=== PATIENT | female | born 1995 | race American Indian/Alaskan Native ===

== ENCOUNTER 2018-08-06 14:26 | Emergency (ER) | payer SELFPAY ==
[2018-08-06 15:52] VITALS: BP 114/68
[2018-08-06] MEDS ORDERED: Penicillin G Benzathine/Procaine 600-600 1.2 Millunits/2 ML Syringe IM ONE (15:53)
--- NOTE | 2018-08-06 15:59 | EDM.PDOC ---
Scribed by Marva Luis 08/06/18 [id number] for Kumar Bagley PA ED HPI GENERAL MEDICAL PROBLEM - General Chief Complaint: ENT Problem Stated Complaint: SORE THROAT Time Seen by Provider: 08/06/18 15:49 Source of Information: Reports: Patient, RN, RN Notes Reviewed History Limitations: Reports: No Limitations - History of Present Illness INITIAL COMMENTS - FREE TEXT/NARRATIVE: Patient has 2 days of sore throat and fever. She took 800mg of Ibuprofen today. Onset: Gradual Duration: Constant Location: Reports: Other (throat) Quality: Reports: Ache Severity: Mild Improves with: Reports: None Worsens with: Reports: None Associated Symptoms: Reports: No Other Symptoms Throat Pain Score (Numeric/FACES): 8 - Related Data Allergies Allergy/AdvReac Type Severity Reaction Status Date / Time No Known Allergies Allergy Verified 08/06/18 14:37 Home Meds: Home Meds . [No Known Home Meds] 08/06/18 [History] Past Medical History - Past Health History Medical/Surgical History: Denies Medical/Surgical History HEENT History: Reports: Other (See Below) Other HEENT History: wears corrective lenses Cardiovascular History: Reports: None Respiratory History: Reports: None Gastrointestinal History: Reports: None Genitourinary History: Reports: None SPINNER OPEN END History: Reports: None Musculoskeletal History: Reports: None Neurological History: Reports: None Psychiatric History: Reports: None Endocrine/Metabolic History: Reports: None Hematologic History: Reports: None Dermatologic History: Reports: None - Infectious Disease History Infectious Disease History: Reports: None - Past Surgical History Female Surgical History: Reports: None Endocrine Surgical History: Reports: None Neurological Surgical History: Reports: None Musculoskeletal Surgical History: Reports: None Social & Family History - Family History Cardiac: Reports: Other (See Below) Other Cardiac Family History: staes heart problems with paternal grandfather and father Endocrine/Metabolic: Reports: Diabetes, Type I, Other (See Below) Other Endocrine/Metabolic Family History: states' diabletes on maternal aunt and maternal grandmother" ED ROS ENT - Review of Systems Review Of Systems: ROS reveals no pertinent complaints other than HPI. ED EXAM, ENT - Physical Exam Exam: See Below Exam Limited By: No Limitations General Appearance: Alert, WD/WN, No Apparent Distress Eye Exam: Bilateral Eye: Normal Inspection Ears: Normal External Exam, Normal Canal, Hearing Grossly Normal, Normal TMs Nose: Normal Inspection, Normal Mucousa, No Blood Mouth/Throat: Tonsillar Erythema (pustules) Head: Atraumatic, Normocephalic Neck: Other (lymphadenopathy anterior cervical bilateral) Respiratory/Chest: No Respiratory Distress, Lungs Clear, Normal Breath Sounds, No Accessory Muscle Use, Chest Non-Tender Cardiovascular: Normal Peripheral Pulses, Regular Rate, Rhythm, No Edema, No Gallop, No JVD, No Murmur, No Rub GI/Abdominal: Normal Bowel Sounds, Soft, Non-Tender, No Organomegaly, No Distention, No Abnormal Bruit, No Mass (Female) Exam: Deferred Rectal (Female) Exam: Deferred Back: Normal Inspection, Full Range of Motion Extremities: Normal Inspection, Normal Range of Motion, Non-Tender, No Pedal Edema, Normal Capillary Refill Neurological: Alert, Oriented, CN II-XII Intact, Normal Cognition, Normal Gait, Normal Reflexes, No Motor/Sensory Deficits Psychiatric: Normal Affect, Normal Mood Skin: Warm, Dry, Intact, Normal Color, No Rash Course - Vital Signs Last Recorded V/S: Last Vital Signs Temp 37.3 C 08/06/18 14:35 Pulse 74 08/06/18 14:35 Resp 16 08/06/18 14:35 BP 114/68 08/06/18 14:35 Pulse Ox 100 08/06/18 14:35 - Orders/Labs/Meds Meds: Medications Discontinued Medications Generic Name Dose Route Start Last Admin Trade Name Freq PRN Reason Stop Dose Admin Penicillin G Procaine/Benzathine 1.2 millunits 08/06/18 15:53 Bicillin C-R 600/600 IM 08/06/18 15:54 ONETIME ONE Departure - Departure Time of Disposition: 15:56 Disposition: Home, Self-Care 01 Condition: Fair Clinical Impression: Strep pharyngitis - Discharge Information *PRESCRIPTION DRUG MONITORING PROGRAM REVIEWED*: Not Applicable *COPY OF PRESCRIPTION DRUG MONITORING REPORT IN PATIENT SALINAS: Not Applicable Instructions: Strep Throat, [id number] Forms: ED Department Discharge Care Plan Goals: The patient was advised of the examination and lab results during the visit. The patient was given an injection of Bicillin while in the ED. The patient was discharged with a script for Azithromycin (250 mg) #6 to take 2 by mouth on day 1 and 1 by mouth on days 2-5. If the patient has any additional symptoms or concerns, the patient should either visit his primary care facility or return to the emergency department. I have read and agree with the documentation that has been completed regarding this visit. By signing this record, I attest that the documentation was completed in my physical presence and is an accurate record of the encounter.
== END 2018-08-06 16:30 | disposition home or self-care (01) ==
LOC: DL.ED 14:26
DX: J02.0 Streptococcal pharyngitis (principal)
CPT/HCPCS: 87430; 96372; 99283; J0558

== ENCOUNTER 2021-03-21 12:43 | Inpatient (IN) | payer MEDICAID ==
--- NOTE | 2021-03-21 13:56 | PCM.LDHP ---
<Neelam Fu M - Last Filed: 03/21/21 19:47> L&D History of Present Illness - General Date of Service: 03/21/21 Admit Problem/Dx: Admission Diagnosis/Problem Admission Diagnosis/Problem Labor No care 03/21/21 17:06 Source of Information: Patient History Limitations: Reports: No Limitations - History of Present Illness Introduction:: Phil is a 25yo with no care who presents in labor. She says she has felt well her entire and figured due to covid she was better off avoiding healthcare settings. Based on ultrasound today EGA is 37 weeks. Phil says she woke up this morning around 0130 having contractions, as they became closer together and more intense she presented to L&D. She endorses bloody show, and some leakage of fluid. No chills, headaches, chest pain, shortn ess of breath, RUQ pain, dysuria, extremity edema. Phil does not plan on breast feeding. Father of baby not involved. Support person today is younger sister, Fly. Brief Obstetric History: Her first she had some cares, was GBS negative at that time. On 06/23/2015 she presented here in labor and had a normal spontaneous vaginal delivery of a healthy baby boy with apgars of 9 and 9. Delivery was complicated by post hemorrhage with EBL 600ml resulting in acute blood loss anemia requiring 2 units of packed RBCs. She had uterine atony requiring methergine and bimanual exam, retained placenta requiring uterine curettage, and a repaired secondary perineal laceration. Associated Symptoms: Reports: N - Related Data Allergies/Adverse Reactions: Allergies Allergy/AdvReac Type Severity Reaction Status Date / Time No Known Allergies Allergy Verified 03/21/21 14:42 Home Medications: Home Meds . [No Known Home Meds] 08/06/18 [History] Past Medical History - Past Health History Medical/Surgical History: Denies Medical/Surgical History HEENT History: Reports: Other (See Below) Other HEENT History: wears corrective lenses Cardiovascular History: Reports: None Respiratory History: Reports: None Gastrointestinal History: Reports: None Genitourinary History: Reports: None CUSTODY ASSISTANT History: Reports: None Musculoskeletal History: Reports: None Neurological History: Reports: None Psychiatric History: Reports: None Endocrine/Metabolic History: Reports: None Hematologic History: Reports: None Dermatologic History: Reports: None - Infectious Disease History Infectious Disease History: Reports: None - Past Surgical History Female Surgical History: Reports: None Endocrine Surgical History: Reports: None Neurological Surgical History: Reports: None Musculoskeletal Surgical History: Reports: None Social & Family History - Family History Cardiac: Reports: Other (See Below) Other Cardiac Family History: staes heart problems with paternal grandfather and father Endocrine/Metabolic: Reports: Diabetes, Type I, Other (See Below) Other Endocrine/Metabolic Family History: states' diabletes on maternal aunt and maternal grandmother" - Living Situation & Occupation Living situation: Reports: Single Social History Comment: Lives with her father, her younger sister, and her 5 year old son. 1 cat in the home. States she feels safe in her living situation. H&P Review of Systems - Review of Systems: Review Of Systems: Comprehensive ROS is negative, except as noted in HPI. L&D Exam - Exam Exam: See Below - OB Specific Contraction Intensity: Moderate Movement: Active Heart Tones: Present Heart Tones per Min: 140 Heart Rate (FHR) Variability: Moderate (6-25 bpm) Presentation: Vertex - Colin Score Colin Score Cervix Position: Posterior Colin Score Consistency: Soft Colin Score Effacement: >80% Colin Score Dilation: > 5 cm Colin Score 's Station: -1 ,0 Colin Score Total: 10 - Exam General: Alert, Oriented, Cooperative HEENT: Conjunctiva Clear, EACs Clear, EOMI, Hearing Intact Neck: Supple, Trachea Midline Lungs: Clear to Auscultation, Normal Respiratory Effort Cardiovascular: Regular Rate, Regular Rhythm GI/Abdominal Exam: Normal Bowel Sounds, Soft, Non-Tender, Other (Gravid) Genitourinary: Cervical dilitation Back Exam: Normal Inspection, Full Range of Motion Extremities: Normal Inspection, Normal Range of Motion, Non-Tender, No Pedal Edema, Normal Capillary Refill Skin: Warm, Dry, Intact Neurological: Cranial Nerves Intact, Reflexes Equal Bilateral. No: Clonus Psychiatric: Alert, Normal Affect, Normal Mood - Patient Data Result Diagrams: 03/21/21 13:45 - Problem List (1) No care in current SNOMED Code(s): 245664552 ICD Code: O09.30 - SUPRVSN OF PREG W INSUFFICIENT ANTENAT CARE, UNSP TRIMESTER Status: Acute Current Visit: Yes Qualifiers: Trimester: third trimester Qualified Code(s): O09.33 - Supervision of with insufficient care, third trimester (2) Normal labor SNOMED Code(s): 40005529 ICD Code: O80 - ENCOUNTER FOR FULL-TERM UNCOMPLICATED DELIVERY; Z37.9 - OUTCOME OF DELIVERY, UNSPECIFIED Status: Acute Current Visit: Yes Problem List Initiated/Reviewed/Updated: Yes Orders Last 24hrs: Active Orders 24 hr Category Date Time Status Heart Rate [RC] CONTINUOUS Care 03/21/21 13:21 Active OB Check [OM.PC] Click to Edit Care 03/21/21 13:21 Ordered POC Labs [RC] ASDIRECTED Care 03/21/21 13:21 Active OB Ltd 1 or More Fetus [US] Stat Exams 03/21/21 13:21 Taken CBC W/O DIFF,HEMOGRAM [HEME] Routine Lab 03/21/21 13:21 Ordered CHLAMYDIA AND GONORRHEA BY TMA Routine Lab 03/21/21 13:21 Ordered CULTURE GROUP B STREP [RM] Routine Lab 03/21/21 13:21 Ordered DRUG SCREEN URINE BIORAD [URCHEM] Routine Lab 03/21/21 13:21 Ordered HBSAG SCREEN [REF] Urgent Lab 03/21/21 13:21 Ordered HEP C VIRUS AB [REF] Urgent Lab 03/21/21 13:21 Ordered HIV-1/2 AG/AB COMBO 4TH GEN [CHEM] Routine Lab 03/21/21 13:21 Ordered MISC TEST Routine Lab 03/21/21 13:21 Ordered RUBELLA ANTIBODY, IGG [REF] Routine Lab 03/21/21 13:21 Ordered TYPE AND SCREEN [BBK] Routine Lab 03/21/21 13:21 Ordered UA RFX SEDRICK AND CULT IF INDIC [URIN] Routine Lab 03/21/21 13:21 Ordered WET PREP [MYC] Routine Lab 03/21/21 13:21 Ordered Assessment/Plan Comment:: Phil Colvin is a 25yo at EGA 37 weeks with no care. - Penicillin given - movement present - Marco Antonio every 2-4 minutes - Labs collected <Ray Pitts - Last Filed: 03/23/21 10:37> L&D History of Present Illness - General Admit Problem/Dx: Patient Status Order with Admit Dx/Problem 03/21/21 13:59 Patient Status [ADT] Routine Admission Diagnosis/Problem Admission Diagnosis/Problem Normal spontaneous vaginal delivery L&D Exam - Vital Signs Vital Signs: Last Vital Signs Temp 98.4 F 03/22/21 19:21 Pulse 70 03/22/21 19:21 Resp 18 03/22/21 19:21 BP 112/61 03/22/21 19:21 Pulse Ox 99 03/22/21 19:21 - Patient Data Lab Results Last 24 hrs: Laboratory Results - last 24 hr 03/21/21 03/21/21 03/23/21 Range/Units 13:45 13:45 05:45 Hgb 6.7 L* (12.0-16.0) g/dL Hct 23.7 L (37.0-47.0) % Hep Bs Antigen Negative (Negative) Hepatitis C Antibody >11.0 H (0.0-0.9) s/co ratio Result Diagrams: 03/23/21 05:45 Sedrick Results Last 24 hrs: Microbiology 03/21/21 15:10 Group B Streptococcus Culture - Preliminary Vaginal/Rectal NEGATIVE STREP GROUP B Orders Last 24hrs: Active Orders 24 hr Category Date Time Status HCV RNA BY PCR, QN RFX JACOB [REF] Routine Lab 03/23/21 05:45 Received Ferrous Sulfate Med 03/24/21 08:00 Active 325 mg PO Q48H Medication Orders Acetaminophen (Acetaminophen 325 Mg Tab) 650 mg PO Q6H PRN PRN Reason: Pain/Fever Last Admin: 03/22/21 11:08 Dose: 650 mg Documented by: SIMONE Benzocaine/Menthol (Benzocaine/Menthol 20%-0.5% [place] 78 Gm Cannister) 0 gm TOP Q4H PRN PRN Reason: Perineal comfort measures Last Admin: 03/21/21 22:32 Dose: 1 applic Documented by: NICCI Carboprost Tromethamine (Carboprost Tromethamine 250 Mcg/1 Ml Amp) 250 mcg IM ASDIRECTED PRN PRN Reason: Excessive vaginal bleeding Docusate Sodium (Docusate Sodium 100 Mg Cap) 100 mg PO BID PRN PRN Reason: Constipation Last Admin: 03/23/21 09:24 Dose: 100 mg Documented by: Admin: 03/22/21 11:08 Dose: 100 mg Documented by: SIMONE Ferrous Sulfate (Ferrous Sulfate 325 Mg Tab) 325 mg PO Q48H MARK Ibuprofen (Ibuprofen 800 Mg Tab) 800 mg PO Q8H PRN PRN Reason: Cramping Methylergonovine Maleate (Methylergonovine 0.2 Mg/1 Ml Amp) 0.2 mg IM ASDIRECTED PRN PRN Reason: Hemorrhage Misoprostol (Misoprostol 400 Mcg (4 X 100 Mcg Tab)) 800 mcg RECTAL ONETIME PRN PRN Reason: Hemorrhage Oxytocin (Oxytocin 10 Units/1 Ml Sdv) 10 unit IM ONETIME PRN PRN Reason: Bleeding Prenat Multivit/Medical Reimbursement Specialist/Iron/Folic Ac ( Multivitamin With Calcium/Folic Acid/Iron Tab) 1 each PO DAILY MARK Last Admin: 03/23/21 09:24 Dose: 1 each Documented by: Admin: 03/22/21 11:07 Dose: 1 each Documented by: SIMONE Simethicone (Simethicone 80 Mg Tab.Chew) 80 mg PO Q4H PRN PRN Reason: Gas Attestation - Student - Attestation Statement Attestation Statement: I personally performed or re-performed the physical examination and medical decision making. I have verified all student documentation or findings, including history, physical exam and/or medical decision making. I supervised the student, and agree with the documentation as provided. - Ray Pitts MD
[2021-03-21] MEDS ORDERED: Ondansetron 4 MG/2 ML SDV IVPUSH PRN (13:58)
[2021-03-21] MEDS ORDERED: Carboprost Tromethamine 250 MCG/1 ML Amp IM PRN ×2 (13:58→18:47)
[2021-03-21] MEDS ORDERED: Methylergonovine 0.2 MG/1 ML Amp IM PRN (13:58)
[2021-03-21] MEDS ORDERED: Lactated Ringers 1,000 ML IV ONE (13:58)
[2021-03-21] MEDS ORDERED: Lidocaine 1% 30 ML SDV INJECT PRN (13:58)
[2021-03-21] MEDS ORDERED: Misoprostol 400 MCG (4 X 100 MCG TAB) RECTAL PRN ×2 (13:58→18:47)
[2021-03-21] MEDS ORDERED: Acetaminophen 325 MG Tab PO PRN ×2 (13:58→18:47)
[2021-03-21] MEDS ORDERED: Tranexamic Acid 1,000 MG in Sodium Chloride 0.9% 100 ML IV PRN ×2 (13:58→18:47)
[2021-03-21] MEDS ORDERED: Sodium Chloride 0.9% 10 ML Syringe FLUSH PRN ×2 (13:58→18:47)
[2021-03-21] MEDS ORDERED: Lactated Ringers 1,000 ML IV SCH (14:00)
[2021-03-21] MEDS ORDERED: Oxytocin/Normal Saline 30 UNIT/500 ML BAG IV SCH (14:00)
--- NOTE | 2021-03-21 14:36 | US ---
PROCEDURE INFORMATION: Exam: US , Limited Exam date and time: 03/21/2021 1:33 PM Age: 25 years old Clinical indication: Lmp or gestational age (in weeks): ? ; Other: No care; TECHNIQUE: Imaging protocol: Real-time ultrasound of the maternal uterus with image documentation. Exam focused on the clinical indication. COMPARISON: No relevant prior studies available. FINDINGS: Gestation: Single intrauterine gestation. presentation: Cephalic. heart rate: 138 bpm Placenta: Fundal. ANATOMY: kidneys: No demonstrated anatomic abnormality involving the kidneys, stomach or urinary bladder. BIOMETRY: Gestational age (AUA): 37 weeks 1 day Estimated due date (AUA): 04/10/2021 Estimated weight: 3150 g (19 percentile) Biparietal diameter: 8.7 cm (35 weeks 0 day(s)) Head circumference: 33.2 cm (37 weeks 6 day(s)) Abdominal circumference: 33.2 cm (37 weeks 1 day(s)) Femur length: 7.5 cm (38 weeks 2 day(s)) biometric ratios: Head/abdomen circumference ratio 1.00 (range 0.87 to 1.06) IMPRESSION: Single viable intrauterine gestation with estimated gestational age of 37 weeks 1 day, based on measurements from this ultrasound.
[2021-03-21 15:30] LABS: AMPHETAMINES,URINE NEGATIVE (NEGATIVE); BARBITURATES,URINE NEGATIVE (NEGATIVE); BENZODIAZEPINE,URINE NEGATIVE (NEGATIVE); MDMA (ECSTASY), URINE NEGATIVE (NEGATIVE); METHADONE,URINE NEGATIVE (NEGATIVE); METHAMPHETAMINES,URINE NEGATIVE (NEGATIVE); OPIATES,URINE NEGATIVE (NEGATIVE); OXYCODONE,URINE NEGATIVE (NEGATIVE); PHENCYCLIDINE,URINE NEGATIVE (NEGATIVE); TCA,URINE NEGATIVE (NEGATIVE)
[2021-03-21] MEDS ORDERED: Penicillin G Potassium 5 MILLUNITS in Sodium Chloride 0.9% 100 ML IV ONE (15:30)
[2021-03-21] MEDS ORDERED: Simethicone 80 MG Tab.Chew PO PRN (18:47)
[2021-03-21] MEDS ORDERED: Benzocaine/Menthol 20%-0.5% Spray 78 GM Cannister TOP PRN (18:47)
[2021-03-21] MEDS ORDERED: Ibuprofen 800 MG Tab PO PRN (18:47)
[2021-03-21] MEDS ORDERED: Zolpidem 5 MG Tab PO PRN (18:47)
[2021-03-21] MEDS ORDERED: Oxytocin 10 Units/1 ML SDV IM PRN (18:47)
[2021-03-21] MEDS ORDERED: Measles, Mumps & Rubella Vaccine 0.5 ML SDV SUBCUT ONE (18:47)
--- NOTE | 2021-03-21 19:12 | PCM.DEL ---
<Neelam Fu M - Last Filed: 03/21/21 19:51> L & D Note - General Info Date of Service: 03/21/21 - Delivery Note Labor: Spontaneous Delivery Outcome: Livebirth Delivery Method: Spontaneous Vaginal Delivery-Single Infant Delivery Mode: Spontaneous Presentation: Right Occiput Anterior (MONIKA) Nuchal Cord: Reduced Anesthesia Type: None Amniotic Fluid Description: Clear Laceration: 1st Degree, Perineal Placenta: Intact, Spontaneous Estimated Blood Loss: 300 Resuscitation Needed: No [place]: Suctioned, Bulb Syringe, Stimulated, [place] Used Provider: Flakita Bey - General Info Date of Service: 03/21/21 Admission Dx/Problem (Free Text): Admission Diagnosis/Problem Admission Diagnosis/Problem Normal Spontaneous Vaginal Delivery, no care 03/21/21 17:06 Subjective Update: Phil is a 25 year old G2, now P2002 at 37 weeks EGA who presented with spontaneous onset of labor on 03/21/2021. Category 1 tracing upon admission. She was dilated to 3 cm upon admission. She progressed to complete dilation by 1820, without augmentation of pitocin. Spontaneous rupture of membranes at 1620 with clear fluid. She began pushing at approximately 1827. Delivered a liveborn male infant from the MONIKA position, over 1st degree perineal laceration at 1827. Vigorous with spontaneous cry. Placenta delivered spontaneously intact with a 3 vessel cord. IV Pitocin was started shortly after delivery of the placenta. EBL 300 mL. Hemostasis confirmed. Mother and infant doing well. - Review of Systems General: Denies: Fever HEENT: Reports: No Symptoms Pulmonary: Denies: Shortness of Breath Cardiovascular: Denies: Chest Pain Gastrointestinal: Reports: No Symptoms Genitourinary: Reports: No Symptoms Musculoskeletal: Reports: No Symptoms Skin: Reports: No Symptoms Neurological: Reports: No Symptoms Psychiatric: Reports: No Symptoms - Patient Data Vitals - Most Recent: Last Vital Signs Temp 97.4 F 03/21/21 16:30 Pulse 66 03/21/21 16:30 Resp 16 03/21/21 16:30 BP 150/89 H 03/21/21 16:30 Pulse Ox Weight - Most Recent: 160 lb Lab Results Last 24 Hours: Laboratory Results - last 24 hr 03/21/21 03/21/21 03/21/21 Range/Units 13:40 13:45 13:45 WBC 10.4 H (5.0-10.0) 10^3/uL RBC 4.53 (4.2-5.4) 10^6/uL Hgb 9.0 L (12.0-16.0) g/dL Hct 31.0 L (37.0-47.0) % MCV 68.4 L D (80-100) fL MCH 19.9 L (27.0-34.0) pg MCHC 29.0 L (33.0-35.0) g/dL Plt Count 180 (150-450) 10^3/uL Urine Color (YELLOW) Urine Appearance (CLEAR) Urine pH (5.0-9.0) Ur Specific [place] (1.005-1.030) Urine Protein (NEGATIVE) Urine Glucose (UA) (NEGATIVE) Urine Ketones (NEGATIVE) Urine Occult Blood (NEGATIVE) Urine Nitrite (NEGATIVE) Urine Bilirubin (NEGATIVE) Urine Urobilinogen (0.2-1.0) mg/dL Ur Leukocyte Esterase (NEGATIVE) Urine RBC (0-5) /HPF Urine WBC (0-5/HPF) /HPF Ur Epithelial Cells (NOT SEEN) /HPF Amorphous Sediment (NOT SEEN) /HPF Urine Bacteria (0-FEW/HPF) /HPF Urine Mucus (NOT SEEN) /LPF Urine Other Urine Opiates Screen (NEGATIVE) Ur Oxycodone Screen (NEGATIVE) Urine Methadone Screen (NEGATIVE) Ur Barbiturates Screen (NEGATIVE) U Tricyclic Antidepress (NEGATIVE) Ur Phencyclidine Scrn (NEGATIVE) Ur Amphetamine Screen (NEGATIVE) U Methamphetamines Scrn (NEGATIVE) Urine MDMA Screen (NEGATIVE) U Benzodiazepines Scrn (NEGATIVE) Urine Cocaine Screen (NEGATIVE) U Marijuana (THC) Screen (NEGATIVE) HIV-1 Antibody Non-reactive (NONREACTIVE) HIV-2 Antibody Non-reactive (NONREACTIVE) HIV P24 Antigen Non-reactive (NONREACTIVE) SARS-CoV-2 RNA (SAL) Negative (NEGATIVE) Blood Type Gel Antibody Screen 03/21/21 03/21/21 03/21/21 Range/Units 13:45 14:51 14:51 WBC (5.0-10.0) 10^3/uL RBC (4.2-5.4) 10^6/uL Hgb (12.0-16.0) g/dL Hct (37.0-47.0) % MCV (80-100) fL MCH (27.0-34.0) pg MCHC (33.0-35.0) g/dL Plt Count (150-450) 10^3/uL Urine Color Yellow (YELLOW) Urine Appearance Slightly cloudy (CLEAR) Urine pH 7.0 (5.0-9.0) Ur Specific [place] 1.015 (1.005-1.030) Urine Protein Negative (NEGATIVE) Urine Glucose (UA) Negative (NEGATIVE) Urine Ketones Negative (NEGATIVE) Urine Occult Blood Moderate H (NEGATIVE) Urine Nitrite Negative (NEGATIVE) Urine Bilirubin Negative (NEGATIVE) Urine Urobilinogen 2.0 H (0.2-1.0) mg/dL Ur Leukocyte Esterase Negative (NEGATIVE) Urine RBC 10-20 H (0-5) /HPF Urine WBC 0-5 (0-5/HPF) /HPF Ur Epithelial Cells Few (NOT SEEN) /HPF Amorphous Sediment Few (NOT SEEN) /HPF Urine Bacteria Few (0-FEW/HPF) /HPF Urine Mucus Rare (NOT SEEN) /LPF Urine Other See note Urine Opiates Screen Negative (NEGATIVE) Ur Oxycodone Screen Negative (NEGATIVE) Urine Methadone Screen Negative (NEGATIVE) Ur Barbiturates Screen Negative (NEGATIVE) U Tricyclic Antidepress Negative (NEGATIVE) Ur Phencyclidine Scrn Negative (NEGATIVE) Ur Amphetamine Screen Negative (NEGATIVE) U Methamphetamines Scrn Negative (NEGATIVE) Urine MDMA Screen Negative (NEGATIVE) U Benzodiazepines Scrn Negative (NEGATIVE) Urine Cocaine Screen Negative (NEGATIVE) U Marijuana (THC) Screen Positive H (NEGATIVE) HIV-1 Antibody (NONREACTIVE) HIV-2 Antibody (NONREACTIVE) HIV P24 Antigen (NONREACTIVE) SARS-CoV-2 RNA (SAL) (NEGATIVE) Blood Type O POSITIVE Gel Antibody Screen Negative [place] Results Last 24 Hours: Microbiology 03/21/21 15:10 Wet Prep - Final Vagina Med Orders - Current: Current Medications Acetaminophen (Acetaminophen 325 Mg Tab) 650 mg PO Q4H PRN PRN Reason: Pain (Mild 1-3) and fever Acetaminophen (Acetaminophen 325 Mg Tab) 650 mg PO Q6H PRN PRN Reason: Pain/Fever Benzocaine/Menthol (Benzocaine/Menthol 20%-0.5% [place] 78 Gm Cannister) 0 gm TOP Q4H PRN PRN Reason: Perineal comfort measures Carboprost Tromethamine (Carboprost Tromethamine 250 Mcg/1 Ml Amp) 250 mcg IM ASDIRECTED PRN PRN Reason: HEMORRHAGE Carboprost Tromethamine (Carboprost Tromethamine 250 Mcg/1 Ml Amp) 250 mcg IM ASDIRECTED PRN PRN Reason: Excessive vaginal bleeding Docusate Sodium (Docusate Sodium 100 Mg Cap) 100 mg PO BID PRN PRN Reason: Constipation Lactated Ringer's (Ringers, Lactated) 1,000 mls @ 125 mls/hr IV ASDIRECTED [facility] Last Admin: 03/21/21 13:50 Dose: 125 mls/hr Documented by: Tranexamic Acid 1,000 mg/ (Sodium Chloride) 110 mls @ 660 mls/hr IV ONETIME PRN PRN Reason: Bleeding Oxytocin/Sodium Chloride (Pitocin In Ns 30 Unit/500 Ml) 30 unit in 500 mls @ 2 mls/hr IV TITRATE [facility]; Protocol Last Titration: 03/21/21 18:46 Dose: 250 munits/min, 250 mls/hr Documented by: Penicillin G Potassium 2.5 (millunits/ Sodium Chloride) 100 mls @ 200 mls/hr IV Q4H MARK Tranexamic Acid 1,000 mg/ (Sodium Chloride) 110 mls @ 660 mls/hr IV ONETIME PRN PRN Reason: Bleeding Ibuprofen (Ibuprofen 800 Mg Tab) 800 mg PO Q8H PRN PRN Reason: Cramping Lidocaine HCl (Lidocaine 1% 30 Ml Sdv) 30 ml INJECT ASDIRECTED PRN PRN Reason: Perineal Repair Methylergonovine Maleate (Methylergonovine 0.2 Mg/1 Ml Amp) 0.2 mg IM ASDIRECTED PRN PRN Reason: Hemorrhage Misoprostol (Misoprostol 400 Mcg (4 X 100 Mcg Tab)) 800 mcg RECTAL ASDIRECTED PRN PRN Reason: Hemorrhage Misoprostol (Misoprostol 400 Mcg (4 X 100 Mcg Tab)) 800 mcg RECTAL ONETIME PRN PRN Reason: Hemorrhage Ondansetron HCl (Ondansetron 4 Mg/2 Ml Sdv) 4 mg IVPUSH Q4H PRN PRN Reason: Nausea/Vomiting Oxytocin (Oxytocin 10 Units/1 Ml Sdv) 10 unit IM ONETIME PRN PRN Reason: Bleeding Prenat Multivit/Foster/Iron/Folic Ac ( Multivitamin With Calcium/Folic Acid/Iron Tab) 1 each PO DAILY MARK Simethicone (Simethicone 80 Mg Tab.Chew) 80 mg PO Q4H PRN PRN Reason: Gas Sodium Chloride (Sodium Chloride 0.9% 10 Ml Syringe) 10 ml FLUSH ASDIRECTED PRN PRN Reason: Keep Vein Open Sodium Chloride (Sodium Chloride 0.9% 10 Ml Syringe) 10 ml FLUSH ASDIRECTED PRN PRN Reason: Keep Vein Open Zolpidem Tartrate (Zolpidem 5 Mg Tab) 5 mg PO BEDTIME PRN PRN Reason: Insomnia Discontinued Medications Lactated Ringer's (Ringers, Lactated) 1,000 mls @ 999 mls/hr IV BOLUS ONE Stop: 03/21/21 14:58 Penicillin G Potassium 5 (millunits/ Sodium Chloride) 100 mls @ 200 mls/hr IV ONETIME ONE Stop: 03/21/21 15:59 Last Admin: 03/21/21 15:30 Dose: 200 mls/hr Documented by: Measles/Mumps/Rubella Vaccine Live (Measles, Mumps & Rubella Vaccine 0.5 Ml Sdv) 0.5 ml SUBCUT .ONCE ONE Stop: 03/21/21 18:48 - Exam General: Alert, Oriented HEENT: Pupils Equal, Pupils Reactive, EOMI, Mucous Membr. Moist/[place] Neck: Supple Lungs: Clear to Auscultation, Normal Respiratory Effort Cardiovascular: Regular Rate, Regular Rhythm GI/Abdominal Exam: Normal Bowel Sounds Back Exam: Normal Inspection, Full Range of Motion Extremities: Normal Inspection, No Pedal Edema Skin: Warm, Dry, Intact Neurological: No New Focal Deficit Psy/Mental Status: Alert, Normal Affect, Normal Mood - Problem List & Annotations (1) No care in current SNOMED Code(s): 519671698 Code(s): O09.30 - SUPRVSN OF PREG W INSUFFICIENT ANTENAT CARE, UNSP TRIMESTER Status: Acute Current Visit: Yes Qualifiers: Trimester: third trimester Qualified Code(s): O09.33 - Supervision of with insufficient care, third trimester (2) Normal labor SNOMED Code(s): 57661657 Code(s): O80 - ENCOUNTER FOR FULL-TERM UNCOMPLICATED DELIVERY; Z37.9 - OUTCOME OF DELIVERY, UNSPECIFIED Status: Acute Current Visit: Yes (3) Normal spontaneous vaginal delivery SNOMED Code(s): 36808116, 691350754 Code(s): O80 - ENCOUNTER FOR FULL-TERM UNCOMPLICATED DELIVERY Status: Acute Current Visit: Yes (4) Anemia affecting in third trimester SNOMED Code(s): 57490676, 96376989 Code(s): O99.013 - ANEMIA COMPLICATING , THIRD TRIMESTER Status: Acute Current Visit: Yes - Problem List Review Problem List Initiated/Reviewed/Updated: Yes - My Orders Last 24 Hours: My Active Orders 03/21/21 Breakfast Regular Diet [DIET] 03/21/21 Lunch Regular Diet [DIET] 03/21/21 13:21 Heart Rate [RC] CONTINUOUS OB Check [OM.PC] Click To Edit POC Labs [RC] ASDIRECTED 03/21/21 13:45 HBSAG SCREEN [REF] Urgent HEP C VIRUS AB [REF] Urgent RUBELLA ANTIBODY, IGG [REF] Routine 03/21/21 13:58 Pump Management, Intrathecal [RC] ASDIRECTED Acetaminophen [TylenoL] 650 mg PO Q4H PRN Carboprost Tromethamine [Hemabate DS] 250 mcg IM ASDIRECTED PRN Lidocaine 1% [Xylocaine-MPF 1%] 30 ml INJECT ASDIRECTED PRN Methylergonovine [Methergine] 0.2 mg IM ASDIRECTED PRN Ondansetron [Zofran] 4 mg IVPUSH Q4H PRN Sodium Chloride 0.9% [Saline Flush] 10 ml FLUSH ASDIRECTED PRN Tranexamic Acid [Cyklokapron] 1,000 mg Sodium Chloride 0.9% [Normal Saline] 100 ml IV ONETIME miSOPROStoL [Cytotec] 800 mcg RECTAL ASDIRECTED PRN Resuscitation Status Routine 03/21/21 13:59 Patient Status [ADT] Routine Communication Order [RC] ASDIRECTED Heart Tones [RC] PER UNIT ROUTINE Notify Provider Vital Signs OB [RC] ASDIRECTED Notify Provider [RC] PRN Up ad Angelica [RC] ASDIRECTED Vital Signs [RC] PER UNIT ROUTINE Saline Lock Insert [OM.PC] Routine 03/21/21 14:00 Lactated Ringers [Ringers, Lactated] 1,000 ml IV ASDIRECTED Oxytocin/Normal Saline [Pitocin in NS 30 UNIT/500 ML] 30 unit in 500 ml IV TITRATE 03/21/21 14:50 CHLAMYDIA AND GONORRHEA BY TMA Routine TRAMADOL, SCREEN ONLY, UR Routine 03/21/21 15:10 CULTURE GROUP B STREP [RM] Routine 03/21/21 Dinner Regular Diet [DIET] 03/21/21 18:47 Up ad Angelica [RC] ASDIRECTED Vital Signs [RC] PFP Consult to Case Management/Retail Marketing Coordinator [CONS] Routine Acetaminophen [TylenoL] 650 mg PO Q6H PRN Benzocaine/Menthol [Dermoplast Pain Relief 20%-0.5% [place]] See Dose Instructions TOP Q4H PRN Carboprost Tromethamine [Hemabate DS] 250 mcg IM ASDIRECTED PRN Docusate Sodium [Colace] 100 mg PO BID PRN Ibuprofen [Motrin] 800 mg PO Q8H PRN Oxytocin [Pitocin] 10 unit IM ONETIME PRN Simethicone 80 mg PO Q4H PRN Sodium Chloride 0.9% [Saline Flush] 10 ml FLUSH ASDIRECTED PRN Tranexamic Acid [Cyklokapron] 1,000 mg Sodium Chloride 0.9% [Normal Saline] 100 ml IV ONETIME Zolpidem [Ambien] 5 mg PO BEDTIME PRN miSOPROStoL [Cytotec] 800 mcg RECTAL ONETIME PRN Assess Lochia [WOMSER] Per Unit Routine Assess Uterine Involution [WOMSER] Per Unit Routine Breast Pump [WOMSER] Per Unit Routine Ice Therapy [OM.PC] Per Unit Routine Perineal Care [OM.PC] Per Unit Routine Saline Lock Insert [OM.PC] Urgent Sitz Bath [OM.PC] Per Unit Routine 03/21/21 18:48 Notify Provider Vital Signs OB [RC] ASDIRECTED 03/22/21 09:00 Vit with Ca/FA/Iron [ Plus Iron] 1 each PO DAILY 03/22/21 18:48 CBC W/O DIFF,HEMOGRAM [HEME] Routine - Assessment Assessment:: 1. G2 now P2002 2. 37 weeks EGA based on ultrasound 03/21/2021 3. No care 4. Anemia of 5. UDS positive for THC - Plan Plan:: Phil Colvin is a 25yo at EGA 37 weeks with no care. Anticipate normal post cares Desires Covid vaccine <Ray Pitts - Last Filed: 03/23/21 10:37> - Patient Data Vitals - Most Recent: Last Vital Signs Temp 98.4 F 03/22/21 19:21 Pulse 70 03/22/21 19:21 Resp 18 03/22/21 19:21 BP 112/61 03/22/21 19:21 Pulse Ox 99 03/22/21 19:21 I&O - Last 24 Hours: Intake & Output 03/22/21 03/23/21 03/23/21 22:59 06:59 14:59 Intake Total 360 Balance 360 Lab Results Last 24 Hours: Laboratory Results - last 24 hr 03/21/21 03/21/21 03/23/21 Range/Units 13:45 13:45 05:45 Hgb 6.7 L* (12.0-16.0) g/dL Hct 23.7 L (37.0-47.0) % Hep Bs Antigen Negative (Negative) Hepatitis C Antibody >11.0 H (0.0-0.9) s/co ratio [place] Results Last 24 Hours: Microbiology 03/21/21 15:10 Group B Streptococcus Culture - Preliminary Vaginal/Rectal NEGATIVE STREP GROUP B Med Orders - Current: Current Medications Acetaminophen (Acetaminophen 325 Mg Tab) 650 mg PO Q6H PRN PRN Reason: Pain/Fever Last Admin: 03/22/21 11:08 Dose: 650 mg Documented by: Benzocaine/Menthol (Benzocaine/Menthol 20%-0.5% [place] 78 Gm Cannister) 0 gm TOP Q4H PRN PRN Reason: Perineal comfort measures Last Admin: 03/21/21 22:32 Dose: 1 applic Documented by: Carboprost Tromethamine (Carboprost Tromethamine 250 Mcg/1 Ml Amp) 250 mcg IM ASDIRECTED PRN PRN Reason: Excessive vaginal bleeding Docusate Sodium (Docusate Sodium 100 Mg Cap) 100 mg PO BID PRN PRN Reason: Constipation Last Admin: 03/23/21 09:24 Dose: 100 mg Documented by: Ferrous Sulfate (Ferrous Sulfate 325 Mg Tab) 325 mg PO Q48H MARK Ibuprofen (Ibuprofen 800 Mg Tab) 800 mg PO Q8H PRN PRN Reason: Cramping Methylergonovine Maleate (Methylergonovine 0.2 Mg/1 Ml Amp) 0.2 mg IM ASDIRECTED PRN PRN Reason: Hemorrhage Misoprostol (Misoprostol 400 Mcg (4 X 100 Mcg Tab)) 800 mcg RECTAL ONETIME PRN PRN Reason: Hemorrhage Oxytocin (Oxytocin 10 Units/1 Ml Sdv) 10 unit IM ONETIME PRN PRN Reason: Bleeding Prenat Multivit/Foster/Iron/Folic Ac ( Multivitamin With Calcium/Folic Acid/Iron Tab) 1 each PO DAILY [facility] Last Admin: 03/23/21 09:24 Dose: 1 each Documented by: Simethicone (Simethicone 80 Mg Tab.Chew) 80 mg PO Q4H PRN PRN Reason: Gas Discontinued Medications Acetaminophen (Acetaminophen 325 Mg Tab) 650 mg PO Q4H PRN PRN Reason: Pain (Mild 1-3) and fever Carboprost Tromethamine (Carboprost Tromethamine 250 Mcg/1 Ml Amp) 250 mcg IM ASDIRECTED PRN PRN Reason: HEMORRHAGE Lactated Ringer's (Ringers, Lactated) 1,000 mls @ 999 mls/hr IV BOLUS ONE Stop: 03/21/21 14:58 Last Admin: 03/21/21 19:09 Dose: Not Given Documented by: Lactated Ringer's (Ringers, Lactated) 1,000 mls @ 125 mls/hr IV ASDIRECTED [facility] Last Admin: 03/21/21 13:50 Dose: 125 mls/hr Documented by: Tranexamic Acid 1,000 mg/ (Sodium Chloride) 110 mls @ 660 mls/hr IV ONETIME PRN PRN Reason: Bleeding Oxytocin/Sodium Chloride (Pitocin In Ns 30 Unit/500 Ml) 30 unit in 500 mls @ 2 mls/hr IV TITRATE [facility]; Protocol Last Titration: 03/21/21 18:46 Dose: 250 munits/min, 250 mls/hr Documented by: Penicillin G Potassium 5 (millunits/ Sodium Chloride) 100 mls @ 200 mls/hr IV ONETIME ONE Stop: 03/21/21 15:59 Last Admin: 03/21/21 15:30 Dose: 200 mls/hr Documented by: Penicillin G Potassium 2.5 (millunits/ Sodium Chloride) 100 mls @ 200 mls/hr IV Q4H [facility] Last Admin: 03/21/21 22:59 Dose: Not Given Documented by: Tranexamic Acid 1,000 mg/ (Sodium Chloride) 110 mls @ 660 mls/hr IV ONETIME PRN PRN Reason: Bleeding Lidocaine HCl (Lidocaine 1% 30 Ml Sdv) 30 ml INJECT ASDIRECTED PRN PRN Reason: Perineal Repair Measles/Mumps/Rubella Vaccine Live (Measles, Mumps & Rubella Vaccine 0.5 Ml Sdv) 0.5 ml SUBCUT .ONCE ONE Stop: 03/21/21 18:48 Last Admin: 03/21/21 22:33 Dose: 0.5 ml Documented by: Misoprostol (Misoprostol 400 Mcg (4 X 100 Mcg Tab)) 800 mcg RECTAL ASDIRECTED PRN PRN Reason: Hemorrhage Ondansetron HCl (Ondansetron 4 Mg/2 Ml Sdv) 4 mg IVPUSH Q4H PRN PRN Reason: Nausea/Vomiting Sodium Chloride (Sodium Chloride 0.9% 10 Ml Syringe) 10 ml FLUSH ASDIRECTED PRN PRN Reason: Keep Vein Open Sodium Chloride (Sodium Chloride 0.9% 10 Ml Syringe) 10 ml FLUSH ASDIRECTED PRN PRN Reason: Keep Vein Open Zolpidem Tartrate (Zolpidem 5 Mg Tab) 5 mg PO BEDTIME PRN PRN Reason: Insomnia Attestation - Student - Attestation Statement Attestation Statement: I personally performed or re-performed the physical examination and medical decision making. I have verified all student documentation or findings, including history, physical exam and/or medical decision making. I supervised the student during the delivery, and agree with the documentation as provided. - Ray Pitts MD
[2021-03-21] MEDS ORDERED: Penicillin G Potassium 2.5 MILLUNITS in Sodium Chloride 0.9% 100 ML IV SCH (19:30)
--- NOTE | 2021-03-22 10:50 | PCM.PNPP ---
<Neelam Fu - Last Filed: 03/22/21 11:20> - General Info Date of Service: 03/22/21 Admission Dx/Problem (Free Text): Admission Diagnosis/Problem Admission Diagnosis/Problem Normal Spontaneous Vaginal Delivery, no care 03/21/21 17:06 Subjective Update: Phil reports no acute overnight events. She has a headache. She has not ambulated yet, nor voided. She is tolerating PO intake. Denies chills, chest pain, shortness of breath, RUQ pain, light headedness or malaise. - General Info Date of Service: 03/22/21 - Patient Data Vital Signs - Most Recent: Last Vital Signs Temp 97.7 F 03/22/21 10:30 Pulse 86 03/22/21 10:30 Resp 18 03/22/21 10:30 BP 106/55 03/22/21 10:30 Pulse Ox Weight - Most Recent: 160 lb I&O - Last 24 Hours: Intake & Output 03/21/21 03/22/21 03/22/21 22:59 06:59 14:59 Intake Total 1900 Balance 1900 Lab Results - Last 24 Hours: Laboratory Results - last 24 hr 03/21/21 03/21/21 03/21/21 Range/Units 13:40 13:45 13:45 WBC 10.4 H (5.0-10.0) 10^3/uL RBC 4.53 (4.2-5.4) 10^6/uL Hgb 9.0 L (12.0-16.0) g/dL Hct 31.0 L (37.0-47.0) % MCV 68.4 L D (80-100) fL MCH 19.9 L (27.0-34.0) pg MCHC 29.0 L (33.0-35.0) g/dL Plt Count 180 (150-450) 10^3/uL Urine Color (YELLOW) Urine Appearance (CLEAR) Urine pH (5.0-9.0) Ur Specific Ferdinand (1.005-1.030) Urine Protein (NEGATIVE) Urine Glucose (UA) (NEGATIVE) Urine Ketones (NEGATIVE) Urine Occult Blood (NEGATIVE) Urine Nitrite (NEGATIVE) Urine Bilirubin (NEGATIVE) Urine Urobilinogen (0.2-1.0) mg/dL Ur Leukocyte Esterase (NEGATIVE) Urine RBC (0-5) /HPF Urine WBC (0-5/HPF) /HPF Ur Epithelial Cells (NOT SEEN) /HPF Amorphous Sediment (NOT SEEN) /HPF Urine Bacteria (0-FEW/HPF) /HPF Urine Mucus (NOT SEEN) /LPF Urine Other Urine Opiates Screen (NEGATIVE) Ur Oxycodone Screen (NEGATIVE) Urine Methadone Screen (NEGATIVE) Ur Barbiturates Screen (NEGATIVE) U Tricyclic Antidepress (NEGATIVE) Ur Phencyclidine Scrn (NEGATIVE) Ur Amphetamine Screen (NEGATIVE) U Methamphetamines Scrn (NEGATIVE) Urine MDMA Screen (NEGATIVE) U Benzodiazepines Scrn (NEGATIVE) Urine Cocaine Screen (NEGATIVE) U Marijuana (THC) Screen (NEGATIVE) HIV-1 Antibody Non-reactive (NONREACTIVE) HIV-2 Antibody Non-reactive (NONREACTIVE) HIV P24 Antigen Non-reactive (NONREACTIVE) Rubella Immune Status Rubella IgG Antibody IU/mL SARS-CoV-2 RNA (SAL) Negative (NEGATIVE) Blood Type Gel Antibody Screen 03/21/21 03/21/21 03/21/21 Range/Units 13:45 13:45 14:51 WBC (5.0-10.0) 10^3/uL RBC (4.2-5.4) 10^6/uL Hgb (12.0-16.0) g/dL Hct (37.0-47.0) % MCV (80-100) fL MCH (27.0-34.0) pg MCHC (33.0-35.0) g/dL Plt Count (150-450) 10^3/uL Urine Color Yellow (YELLOW) Urine Appearance Slightly cloudy (CLEAR) Urine pH 7.0 (5.0-9.0) Ur Specific [place] 1.015 (1.005-1.030) Urine Protein Negative (NEGATIVE) Urine Glucose (UA) Negative (NEGATIVE) Urine Ketones Negative (NEGATIVE) Urine Occult Blood Moderate H (NEGATIVE) Urine Nitrite Negative (NEGATIVE) Urine Bilirubin Negative (NEGATIVE) Urine Urobilinogen 2.0 H (0.2-1.0) mg/dL Ur Leukocyte Esterase Negative (NEGATIVE) Urine RBC 10-20 H (0-5) /HPF Urine WBC 0-5 (0-5/HPF) /HPF Ur Epithelial Cells Few (NOT SEEN) /HPF Amorphous Sediment Few (NOT SEEN) /HPF Urine Bacteria Few (0-FEW/HPF) /HPF Urine Mucus Rare (NOT SEEN) /LPF Urine Other See note Urine Opiates Screen (NEGATIVE) Ur Oxycodone Screen (NEGATIVE) Urine Methadone Screen (NEGATIVE) Ur Barbiturates Screen (NEGATIVE) U Tricyclic Antidepress (NEGATIVE) Ur Phencyclidine Scrn (NEGATIVE) Ur Amphetamine Screen (NEGATIVE) U Methamphetamines Scrn (NEGATIVE) Urine MDMA Screen (NEGATIVE) U Benzodiazepines Scrn (NEGATIVE) Urine Cocaine Screen (NEGATIVE) U Marijuana (THC) Screen (NEGATIVE) HIV-1 Antibody (NONREACTIVE) HIV-2 Antibody (NONREACTIVE) HIV P24 Antigen (NONREACTIVE) Rubella Immune Status Non-imm Rubella IgG Antibody Negative IU/mL SARS-CoV-2 RNA (SAL) (NEGATIVE) Blood Type O POSITIVE Gel Antibody Screen Negative 03/21/21 03/22/21 Range/Units 14:51 05:40 WBC 13.4 H (5.0-10.0) 10^3/uL RBC 3.56 L (4.2-5.4) 10^6/uL Hgb 7.0 L D (12.0-16.0) g/dL Hct 24.5 L (37.0-47.0) % MCV 68.8 L (80-100) fL MCH 19.7 L (27.0-34.0) pg MCHC 28.6 L (33.0-35.0) g/dL Plt Count 153 (150-450) 10^3/uL Urine Color (YELLOW) Urine Appearance (CLEAR) Urine pH (5.0-9.0) Ur Specific [place] (1.005-1.030) Urine Protein (NEGATIVE) Urine Glucose (UA) (NEGATIVE) Urine Ketones (NEGATIVE) Urine Occult Blood (NEGATIVE) Urine Nitrite (NEGATIVE) Urine Bilirubin (NEGATIVE) Urine Urobilinogen (0.2-1.0) mg/dL Ur Leukocyte Esterase (NEGATIVE) Urine RBC (0-5) /HPF Urine WBC (0-5/HPF) /HPF Ur Epithelial Cells (NOT SEEN) /HPF Amorphous Sediment (NOT SEEN) /HPF Urine Bacteria (0-FEW/HPF) /HPF Urine Mucus (NOT SEEN) /LPF Urine Other Urine Opiates Screen Negative (NEGATIVE) Ur Oxycodone Screen Negative (NEGATIVE) Urine Methadone Screen Negative (NEGATIVE) Ur Barbiturates Screen Negative (NEGATIVE) U Tricyclic Antidepress Negative (NEGATIVE) Ur Phencyclidine Scrn Negative (NEGATIVE) Ur Amphetamine Screen Negative (NEGATIVE) U Methamphetamines Scrn Negative (NEGATIVE) Urine MDMA Screen Negative (NEGATIVE) U Benzodiazepines Scrn Negative (NEGATIVE) Urine Cocaine Screen Negative (NEGATIVE) U Marijuana (THC) Screen Positive H (NEGATIVE) HIV-1 Antibody (NONREACTIVE) HIV-2 Antibody (NONREACTIVE) HIV P24 Antigen (NONREACTIVE) Rubella Immune Status Rubella IgG Antibody IU/mL SARS-CoV-2 RNA (SAL) (NEGATIVE) Blood Type Gel Antibody Screen Micro Results - Last 24 Hours: Microbiology 03/21/21 15:10 Wet Prep - Final Vagina Med Orders - Current: Current Medications Acetaminophen (Acetaminophen 325 Mg Tab) 650 mg PO Q4H PRN PRN Reason: Pain (Mild 1-3) and fever Acetaminophen (Acetaminophen 325 Mg Tab) 650 mg PO Q6H PRN PRN Reason: Pain/Fever Benzocaine/Menthol (Benzocaine/Menthol 20%-0.5% [place] 78 Gm Cannister) 0 gm TOP Q4H PRN PRN Reason: Perineal comfort measures Last Admin: 03/21/21 22:32 Dose: 1 applic Documented by: Carboprost Tromethamine (Carboprost Tromethamine 250 Mcg/1 Ml Amp) 250 mcg IM ASDIRECTED PRN PRN Reason: HEMORRHAGE Carboprost Tromethamine (Carboprost Tromethamine 250 Mcg/1 Ml Amp) 250 mcg IM ASDIRECTED PRN PRN Reason: Excessive vaginal bleeding Docusate Sodium (Docusate Sodium 100 Mg Cap) 100 mg PO BID PRN PRN Reason: Constipation Tranexamic Acid 1,000 mg/ (Sodium Chloride) 110 mls @ 660 mls/hr IV ONETIME PRN PRN Reason: Bleeding Tranexamic Acid 1,000 mg/ (Sodium Chloride) 110 mls @ 660 mls/hr IV ONETIME PRN PRN Reason: Bleeding Ibuprofen (Ibuprofen 800 Mg Tab) 800 mg PO Q8H PRN PRN Reason: Cramping Methylergonovine Maleate (Methylergonovine 0.2 Mg/1 Ml Amp) 0.2 mg IM ASDIRECTED PRN PRN Reason: Hemorrhage Misoprostol (Misoprostol 400 Mcg (4 X 100 Mcg Tab)) 800 mcg RECTAL ASDIRECTED PRN PRN Reason: Hemorrhage Misoprostol (Misoprostol 400 Mcg (4 X 100 Mcg Tab)) 800 mcg RECTAL ONETIME PRN PRN Reason: Hemorrhage Ondansetron HCl (Ondansetron 4 Mg/2 Ml Sdv) 4 mg IVPUSH Q4H PRN PRN Reason: Nausea/Vomiting Oxytocin (Oxytocin 10 Units/1 Ml Sdv) 10 unit IM ONETIME PRN PRN Reason: Bleeding Prenat Multivit/[place]/Iron/Folic Ac ( Multivitamin With Calcium/Folic Acid/Iron Tab) 1 each PO DAILY [facility] Simethicone (Simethicone 80 Mg Tab.Chew) 80 mg PO Q4H PRN PRN Reason: Gas Sodium Chloride (Sodium Chloride 0.9% 10 Ml Syringe) 10 ml FLUSH ASDIRECTED PRN PRN Reason: Keep Vein Open Sodium Chloride (Sodium Chloride 0.9% 10 Ml Syringe) 10 ml FLUSH ASDIRECTED PRN PRN Reason: Keep Vein Open Zolpidem Tartrate (Zolpidem 5 Mg Tab) 5 mg PO BEDTIME PRN PRN Reason: Insomnia Discontinued Medications Lactated Ringer's (Ringers, Lactated) 1,000 mls @ 999 mls/hr IV BOLUS ONE Stop: 03/21/21 14:58 Last Admin: 03/21/21 19:09 Dose: Not Given Documented by: Lactated Ringer's (Ringers, Lactated) 1,000 mls @ 125 mls/hr IV ASDIRECTED [facility] Last Admin: 03/21/21 13:50 Dose: 125 mls/hr Documented by: Oxytocin/Sodium Chloride (Pitocin In Ns 30 Unit/500 Ml) 30 unit in 500 mls @ 2 mls/hr IV TITRATE [facility]; Protocol Last Titration: 03/21/21 18:46 Dose: 250 munits/min, 250 mls/hr Documented by: Penicillin G Potassium 5 (millunits/ Sodium Chloride) 100 mls @ 200 mls/hr IV ONETIME ONE Stop: 03/21/21 15:59 Last Admin: 03/21/21 15:30 Dose: 200 mls/hr Documented by: Penicillin G Potassium 2.5 (millunits/ Sodium Chloride) 100 mls @ 200 mls/hr IV Q4H [facility] Last Admin: 03/21/21 22:59 Dose: Not Given Documented by: Lidocaine HCl (Lidocaine 1% 30 Ml Sdv) 30 ml INJECT ASDIRECTED PRN PRN Reason: Perineal Repair Measles/Mumps/Rubella Vaccine Live (Measles, Mumps & Rubella Vaccine 0.5 Ml Sdv) 0.5 ml SUBCUT .ONCE ONE Stop: 03/21/21 18:48 Last Admin: 03/21/21 22:33 Dose: 0.5 ml Documented by: - Interaction Infant Disposition, : in Room with Family Interaction: Holding Feeding: Bottle Fed Support Person: Sister - Recovery Exam Fundal Tone: Firm Fundal Level: 2 Fingerbreadths Below Umbilicus Fundal Placement: Midline Lochia Amount: Small Lochia Color: Rubra/Red Perineum Description: Intact, Minimal Bruising/Swelling Episiotomy/Laceration: None Bladder Status: Nonpalpable, Voiding Urinary Elimination: Voided - Exam General: Alert, Oriented HEENT: Pupils Equal, Pupils Reactive, EOMI, Mucous Membr. Moist/[place] Neck: Supple Lungs: Clear to Auscultation, Normal Respiratory Effort Cardiovascular: Regular Rate, Regular Rhythm GI/Abdominal Exam: Normal Bowel Sounds, Soft Extremities: Normal Inspection, No Pedal Edema Skin: Warm, Dry, Intact Neurological: No New Focal Deficit Psy/Mental Status: Alert, Normal Affect, Normal Mood - Problem List & Annotations (1) No care in current SNOMED Code(s): 963793849 Code(s): O09.30 - SUPRVSN OF PREG W INSUFFICIENT ANTENAT CARE, UNSP TRIMESTER Status: Acute Current Visit: Yes Qualifiers: Trimester: third trimester Qualified Code(s): O09.33 - Supervision of with insufficient care, third trimester (2) Normal labor SNOMED Code(s): 63867291 Code(s): O80 - ENCOUNTER FOR FULL-TERM UNCOMPLICATED DELIVERY; Z37.9 - OUTCOME OF DELIVERY, UNSPECIFIED Status: Acute Current Visit: Yes (3) Normal spontaneous vaginal delivery SNOMED Code(s): 24555441, 906946556 Code(s): O80 - ENCOUNTER FOR FULL-TERM UNCOMPLICATED DELIVERY Status: Acute Current Visit: Yes (4) Anemia affecting in third trimester SNOMED Code(s): 75222530, 17216034 Code(s): O99.013 - ANEMIA COMPLICATING , THIRD TRIMESTER Status: Acute Current Visit: Yes - Problem List Review Problem List Initiated/Reviewed/Updated: Yes - My Orders Last 24 Hours: My Active Orders 03/21/21 Lunch Regular Diet [DIET] 03/21/21 13:21 Heart Rate [RC] CONTINUOUS OB Check [OM.PC] Click to Edit POC Labs [RC] ASDIRECTED 03/21/21 13:45 HBSAG SCREEN [REF] Urgent HEP C VIRUS AB [REF] Urgent 03/21/21 13:58 Acetaminophen [TylenoL] 650 mg PO Q4H PRN Carboprost Tromethamine [Hemabate DS] 250 mcg IM ASDIRECTED PRN Methylergonovine [Methergine] 0.2 mg IM ASDIRECTED PRN Ondansetron [Zofran] 4 mg IVPUSH Q4H PRN Sodium Chloride 0.9% [Saline Flush] 10 ml FLUSH ASDIRECTED PRN Tranexamic Acid [Cyklokapron] 1,000 mg Sodium Chloride 0.9% [Normal Saline] 100 ml IV ONETIME miSOPROStoL [Cytotec] 800 mcg RECTAL ASDIRECTED PRN Resuscitation Status Routine 03/21/21 13:59 Patient Status [ADT] Routine Notify Provider [RC] PRN Vital Signs [RC] PER UNIT ROUTINE Saline Lock Insert [OM.PC] Routine 03/21/21 14:50 CHLAMYDIA AND GONORRHEA BY TMA Routine TRAMADOL, SCREEN ONLY, UR Routine 03/21/21 15:10 CULTURE GROUP B STREP [RM] Routine 03/21/21 Dinner Regular Diet [DIET] 03/21/21 18:47 Up ad Angelica [RC] ASDIRECTED Vital Signs [RC] 08,20 Consult to Case Management/Configuration Management Advisor [CONS] Routine Acetaminophen [TylenoL] 650 mg PO Q6H PRN Benzocaine/Menthol [Dermoplast Pain Relief 20%-0.5% [place]] See Dose Instructions TOP Q4H PRN Carboprost Tromethamine [Hemabate DS] 250 mcg IM ASDIRECTED PRN Docusate Sodium [Colace] 100 mg PO BID PRN Ibuprofen [Motrin] 800 mg PO Q8H PRN Oxytocin [Pitocin] 10 unit IM ONETIME PRN Simethicone 80 mg PO Q4H PRN Sodium Chloride 0.9% [Saline Flush] 10 ml FLUSH ASDIRECTED PRN Tranexamic Acid [Cyklokapron] 1,000 mg Sodium Chloride 0.9% [Normal Saline] 100 ml IV ONETIME Zolpidem [Ambien] 5 mg PO BEDTIME PRN miSOPROStoL [Cytotec] 800 mcg RECTAL ONETIME PRN Assess Lochia [WOMSER] Per Unit Routine Assess Uterine Involution [WOMSER] Per Unit Routine Breast Pump [WOMSER] Per Unit Routine Ice Therapy [OM.PC] Per Unit Routine Perineal Care [OM.PC] Per Unit Routine Saline Lock Insert [OM.PC] Urgent Sitz Bath [OM.PC] Per Unit Routine 03/21/21 18:48 Notify Provider Vital Signs OB [RC] ASDIRECTED 03/22/21 09:00 Vit with Ca/FA/Iron [ Plus Iron] 1 each PO DAILY - Assessment Assessment:: 1. G2 now P2002 2. 37 weeks EGA based on ultrasound 03/21/2021 3. No care 4. Anemia of 5. UDS positive for THC - Plan Plan:: Phil Colvin is a 25yo at EGA 37 weeks with no care, precipitous normal spontaneous vaginal delivery of a vigorous male infant. Tylenol for pain. Patient is anemic, labs this morning showed hgb 7.0, down from 9.0 on admission. Patient denies symptoms, vitals stable. will reassess when patient begins ambulating. Start Iron supplement EOD, type and screen drawn on admission. Pending clinical course, patient may discharge at 48 hours post . Social work consulted for with no care, THC positive on UDS. <Ray Pitts - Last Filed: 03/23/21 10:34> - Patient Data Vital Signs - Most Recent: Last Vital Signs Temp 98.4 F 03/22/21 19: Pulse 70 03/22/21 19:21 Resp 18 03/22/21 19:21 BP 112/61 03/22/21 19: Pulse Ox 99 03/22/21 19:21 I&O - Last 24 Hours: Intake & Output 03/22/21 03/23/21 03/23/21 22:59 06:59 14:59 Intake Total 360 Balance 360 Lab Results - Last 24 Hours: Laboratory Results - last 24 hr 03/21/21 03/21/21 03/23/21 Range/Units 13:45 13:45 05:45 Hgb 6.7 L* (12.0-16.0) g/dL Hct 23.7 L (37.0-47.0) % Hep Bs Antigen Negative (Negative) Hepatitis C Antibody >11.0 H (0.0-0.9) s/co ratio Micro Results - Last 24 Hours: Microbiology 03/21/21 15:10 Group B Streptococcus Culture - Preliminary Vaginal/Rectal NEGATIVE STREP GROUP B Med Orders - Current: Current Medications Acetaminophen (Acetaminophen 325 Mg Tab) 650 mg PO Q6H PRN PRN Reason: Pain/Fever Last Admin: 03/22/21 11:08 Dose: 650 mg Documented by: Benzocaine/Menthol (Benzocaine/Menthol 20%-0.5% [place] 78 Gm Cannister) 0 gm TOP Q4H PRN PRN Reason: Perineal comfort measures Last Admin: 03/21/21 22:32 Dose: 1 applic Documented by: Carboprost Tromethamine (Carboprost Tromethamine 250 Mcg/1 Ml Amp) 250 mcg IM ASDIRECTED PRN PRN Reason: Excessive vaginal bleeding Docusate Sodium (Docusate Sodium 100 Mg Cap) 100 mg PO BID PRN PRN Reason: Constipation Last Admin: 03/23/21 09:24 Dose: 100 mg Documented by: Ferrous Sulfate (Ferrous Sulfate 325 Mg Tab) 325 mg PO Q48H MARK Ibuprofen (Ibuprofen 800 Mg Tab) 800 mg PO Q8H PRN PRN Reason: Cramping Methylergonovine Maleate (Methylergonovine 0.2 Mg/1 Ml Amp) 0.2 mg IM ASDIRECTED PRN PRN Reason: Hemorrhage Misoprostol (Misoprostol 400 Mcg (4 X 100 Mcg Tab)) 800 mcg RECTAL ONETIME PRN PRN Reason: Hemorrhage Oxytocin (Oxytocin 10 Units/1 Ml Sdv) 10 unit IM ONETIME PRN PRN Reason: Bleeding Prenat Multivit/Injection Machine Operator/Iron/Folic Ac ( Multivitamin With Calcium/Folic Acid/Iron Tab) 1 each PO DAILY MARK Last Admin: 03/23/21 09:24 Dose: 1 each Documented by: Simethicone (Simethicone 80 Mg Tab.Chew) 80 mg PO Q4H PRN PRN Reason: Gas Discontinued Medications Acetaminophen (Acetaminophen 325 Mg Tab) 650 mg PO Q4H PRN PRN Reason: Pain (Mild 1-3) and fever Carboprost Tromethamine (Carboprost Tromethamine 250 Mcg/1 Ml Amp) 250 mcg IM ASDIRECTED PRN PRN Reason: HEMORRHAGE Lactated Ringer's (Ringers, Lactated) 1,000 mls @ 999 mls/hr IV BOLUS ONE Stop: 03/21/21 14:58 Last Admin: 03/21/21 19:09 Dose: Not Given Documented by: Lactated Ringer's (Ringers, Lactated) 1,000 mls @ 125 mls/hr IV ASDIRECTED MARK Last Admin: 03/21/21 13:50 Dose: 125 mls/hr Documented by: Tranexamic Acid 1,000 mg/ (Sodium Chloride) 110 mls @ 660 mls/hr IV ONETIME PRN PRN Reason: Bleeding Oxytocin/Sodium Chloride (Pitocin In Ns 30 Unit/500 Ml) 30 unit in 500 mls @ 2 mls/hr IV TITRATE [facility]; Protocol Last Titration: 03/21/21 18:46 Dose: 250 munits/min, 250 mls/hr Documented by: Penicillin G Potassium 5 (millunits/ Sodium Chloride) 100 mls @ 200 mls/hr IV ONETIME ONE Stop: 03/21/21 15:59 Last Admin: 03/21/21 15:30 Dose: 200 mls/hr Documented by: Penicillin G Potassium 2.5 (millunits/ Sodium Chloride) 100 mls @ 200 mls/hr IV Q4H [facility] Last Admin: 03/21/21 22:59 Dose: Not Given Documented by: Tranexamic Acid 1,000 mg/ (Sodium Chloride) 110 mls @ 660 mls/hr IV ONETIME PRN PRN Reason: Bleeding Lidocaine HCl (Lidocaine 1% 30 Ml Sdv) 30 ml INJECT ASDIRECTED PRN PRN Reason: Perineal Repair Measles/Mumps/Rubella Vaccine Live (Measles, Mumps & Rubella Vaccine 0.5 Ml Sdv) 0.5 ml SUBCUT .ONCE ONE Stop: 03/21/21 18:48 Last Admin: 03/21/21 22:33 Dose: 0.5 ml Documented by: Misoprostol (Misoprostol 400 Mcg (4 X 100 Mcg Tab)) 800 mcg RECTAL ASDIRECTED PRN PRN Reason: Hemorrhage Ondansetron HCl (Ondansetron 4 Mg/2 Ml Sdv) 4 mg IVPUSH Q4H PRN PRN Reason: Nausea/Vomiting Sodium Chloride (Sodium Chloride 0.9% 10 Ml Syringe) 10 ml FLUSH ASDIRECTED PRN PRN Reason: Keep Vein Open Sodium Chloride (Sodium Chloride 0.9% 10 Ml Syringe) 10 ml FLUSH ASDIRECTED PRN PRN Reason: Keep Vein Open Zolpidem Tartrate (Zolpidem 5 Mg Tab) 5 mg PO BEDTIME PRN PRN Reason: Insomnia Attestation - Student - Attestation Statement Attestation Statement: I personally performed or re-performed the physical examination and medical decision making. I have verified all student documentation or findings, includi ng history, physical exam and/or medical decision making. I supervised the student and agree with the documentation as provided. - Ray Pitts MD
[2021-03-22] MEDS: Prenatal Multivitamin with Calcium/Folic Acid/Iron Tab PO SCH (11:07)
[2021-03-22] MEDS: Docusate Sodium 100 MG Cap PO PRN (11:08)
[2021-03-23] MEDS: Docusate Sodium 100 MG Cap PO PRN (09:24)
[2021-03-23] MEDS: Prenatal Multivitamin with Calcium/Folic Acid/Iron Tab PO SCH (09:24)
--- NOTE | 2021-03-23 09:55 | PCM.PNPP ---
<Flakita Bey - Last Filed: 03/23/21 09:47> - General Info Date of Service: 03/23/21 Admission Dx/Problem (Free Text): Admitted for labor. Delivered viable male on 03/21/21. Lochia is appropriate amount, no pain. Denies shortness of breath, chest pain, palpitations or weakness. Has been able to urinate and walk about room. Eating well. Functional Status: Reports: Pain Controlled, Tolerating Diet, Ambulating, Urinating - Review of Systems General: Reports: No Symptoms HEENT: Reports: No Symptoms Pulmonary: Reports: No Symptoms Cardiovascular: Reports: No Symptoms Gastrointestinal: Reports: No Symptoms Genitourinary: Reports: No Symptoms, Other (normal lochia) Musculoskeletal: Reports: No Symptoms Skin: Reports: No Symptoms Neurological: Reports: No Symptoms Psychiatric: Reports: No Symptoms - Patient Data Vital Signs - Most Recent: Last Vital Signs Temp 98.4 F 03/22/21 19:21 Pulse 70 03/22/21 19:21 Resp 18 03/22/21 19:21 BP 112/61 03/22/21 19:21 Pulse Ox 99 03/22/21 19:21 Weight - Most Recent: 160 lb I&O - Last 24 Hours: Intake & Output 03/22/21 03/23/21 03/23/21 22:59 06:59 14:59 Intake Total 360 Balance 360 Lab Results - Last 24 Hours: Laboratory Results - last 24 hr 03/21/21 03/21/21 03/23/21 Range/Units 13:45 13:45 05:45 Hgb 6.7 L* (12.0-16.0) g/dL Hct 23.7 L (37.0-47.0) % Hep Bs Antigen Negative (Negative) Hepatitis C Antibody >11.0 H (0.0-0.9) s/co ratio Micro Results - Last 24 Hours: Microbiology 03/21/21 15:10 Group B Streptococcus Culture - Preliminary Vaginal/Rectal NEGATIVE STREP GROUP B Med Orders - Current: Current Medications Acetaminophen (Acetaminophen 325 Mg Tab) 650 mg PO Q6H PRN PRN Reason: Pain/Fever Last Admin: 03/22/21 11:08 Dose: 650 mg Documented by: Benzocaine/Menthol (Benzocaine/Menthol 20%-0.5% [place] 78 Gm Cannister) 0 gm TOP Q4H PRN PRN Reason: Perineal comfort measures Last Admin: 03/21/21 22:32 Dose: 1 applic Documented by: Carboprost Tromethamine (Carboprost Tromethamine 250 Mcg/1 Ml Amp) 250 mcg IM ASDIRECTED PRN PRN Reason: Excessive vaginal bleeding Docusate Sodium (Docusate Sodium 100 Mg Cap) 100 mg PO BID PRN PRN Reason: Constipation Last Admin: 03/23/21 09:24 Dose: 100 mg Documented by: Ibuprofen (Ibuprofen 800 Mg Tab) 800 mg PO Q8H PRN PRN Reason: Cramping Methylergonovine Maleate (Methylergonovine 0.2 Mg/1 Ml Amp) 0.2 mg IM ASDIRECTED PRN PRN Reason: Hemorrhage Misoprostol (Misoprostol 400 Mcg (4 X 100 Mcg Tab)) 800 mcg RECTAL ONETIME PRN PRN Reason: Hemorrhage Oxytocin (Oxytocin 10 Units/1 Ml Sdv) 10 unit IM ONETIME PRN PRN Reason: Bleeding Prenat Multivit/Colbert/Iron/Folic Ac ( Multivitamin With Calcium/Folic Acid/Iron Tab) 1 each PO DAILY [facility] Last Admin: 03/23/21 09:24 Dose: 1 each Documented by: Simethicone (Simethicone 80 Mg Tab.Chew) 80 mg PO Q4H PRN PRN Reason: Gas Discontinued Medications Acetaminophen (Acetaminophen 325 Mg Tab) 650 mg PO Q4H PRN PRN Reason: Pain (Mild 1-3) and fever Carboprost Tromethamine (Carboprost Tromethamine 250 Mcg/1 Ml Amp) 250 mcg IM ASDIRECTED PRN PRN Reason: HEMORRHAGE Lactated Ringer's (Ringers, Lactated) 1,000 mls @ 999 mls/hr IV BOLUS ONE Stop: 03/21/21 14:58 Last Admin: 03/21/21 19:09 Dose: Not Given Documented by: Lactated Ringer's (Ringers, Lactated) 1,000 mls @ 125 mls/hr IV ASDIRECTED [facility] Last Admin: 03/21/21 13:50 Dose: 125 mls/hr Documented by: Tranexamic Acid 1,000 mg/ (Sodium Chloride) 110 mls @ 660 mls/hr IV ONETIME PRN PRN Reason: Bleeding Oxytocin/Sodium Chloride (Pitocin In Ns 30 Unit/500 Ml) 30 unit in 500 mls @ 2 mls/hr IV TITRATE MARK; Protocol Last Titration: 03/21/21 18:46 Dose: 250 munits/min, 250 mls/hr Documented by: Penicillin G Potassium 5 (millunits/ Sodium Chloride) 100 mls @ 200 mls/hr IV ONETIME ONE Stop: 03/21/21 15:59 Last Admin: 03/21/21 15:30 Dose: 200 mls/hr Documented by: Penicillin G Potassium 2.5 (millunits/ Sodium Chloride) 100 mls @ 200 mls/hr IV Q4H MARK Last Admin: 03/21/21 22:59 Dose: Not Given Documented by: Tranexamic Acid 1,000 mg/ (Sodium Chloride) 110 mls @ 660 mls/hr IV ONETIME PRN PRN Reason: Bleeding Lidocaine HCl (Lidocaine 1% 30 Ml Sdv) 30 ml INJECT ASDIRECTED PRN PRN Reason: Perineal Repair Measles/Mumps/Rubella Vaccine Live (Measles, Mumps & Rubella Vaccine 0.5 Ml Sdv) 0.5 ml SUBCUT .ONCE ONE Stop: 03/21/21 18:48 Last Admin: 03/21/21 22:33 Dose: 0.5 ml Documented by: Misoprostol (Misoprostol 400 Mcg (4 X 100 Mcg Tab)) 800 mcg RECTAL ASDIRECTED PRN PRN Reason: Hemorrhage Ondansetron HCl (Ondansetron 4 Mg/2 Ml Sdv) 4 mg IVPUSH Q4H PRN PRN Reason: Nausea/Vomiting Sodium Chloride (Sodium Chloride 0.9% 10 Ml Syringe) 10 ml FLUSH ASDIRECTED PRN PRN Reason: Keep Vein Open Sodium Chloride (Sodium Chloride 0.9% 10 Ml Syringe) 10 ml FLUSH ASDIRECTED PRN PRN Reason: Keep Vein Open Zolpidem Tartrate (Zolpidem 5 Mg Tab) 5 mg PO BEDTIME PRN PRN Reason: Insomnia - Infant Interaction Disposition, : in Room with Family Interaction: Holding Infant Feeding: Bottle Fed Infant Support Person: Sister - Recovery Exam Fundal Tone: Firm Fundal Level: 1 Fingerbreadths Below Umbilicus Fundal Placement: Midline Lochia Amount: Scant Lochia Color: Rubra/Red Perineum Description: Intact, Minimal Bruising/Swelling Episiotomy/Laceration: None Bladder Status: Nonpalpable, Voiding Urinary Elimination: Voided - Exam General: Alert, Oriented HEENT: Pupils Equal, Pupils Reactive Neck: Supple Lungs: Clear to Auscultation, Normal Respiratory Effort Cardiovascular: Regular Rate, Regular Rhythm GI/Abdominal Exam: Normal Bowel Sounds, Soft, Non-Tender Extremities: Normal Inspection, Normal Range of Motion, Non-Tender Skin: Warm, Dry, Intact Neurological: No New Focal Deficit Psy/Mental Status: Alert, Normal Affect, Normal Mood - Problem List & Annotations (1) Anemia affecting in third trimester SNOMED Code(s): 77002695, 53842856 Code(s): O99.013 - ANEMIA COMPLICATING , THIRD TRIMESTER Status: Acute Current Visit: Yes Annotation/Comment:: -Hgb 6.7 this AM -Asymptomatic, will continue to monitor for symptoms -Ferrous sulfate 325mg started, dosing every other day for optimal absorption -Hgb in AM -May consider PRBC transfusion if develops symptoms (2) Normal spontaneous vaginal delivery SNOMED Code(s): 28382583, 092754083 Code(s): O80 - ENCOUNTER FOR FULL-TERM UNCOMPLICATED DELIVERY Status: Acute Current Visit: Yes Annotation/Comment:: -Continue normal cares (3) Hepatitis C antibody positive in blood SNOMED Code(s): 668462785 Code(s): R76.8 - OTHER SPECIFIED ABNORMAL IMMUNOLOGICAL FINDINGS IN SERUM Status: Acute Current Visit: Yes (4) Hepatitis C antibody positive in blood SNOMED Code(s): 325806971 Code(s): R76.8 - OTHER SPECIFIED ABNORMAL IMMUNOLOGICAL FINDINGS IN SERUM Status: Acute Current Visit: Yes - Problem List Review Problem List Initiated/Reviewed/Updated: Yes - My Orders Last 24 Hours: My Active Orders 03/24/21 08:00 Ferrous Sulfate 325 mg PO WITHBREAKFAST - Assessment Assessment:: 1. G2 now P2002 2. 37 weeks EGA based on ultrasound 03/21/2021 3. No care 4. Anemia of 5. UDS positive for THC 6. Hepatitis C antibody positive - Plan Plan:: Phil Colvin is a 25yo at EGA 37 weeks with no care, precipitous normal spontaneous vaginal delivery of a vigorous male infant. PPD2 Tylenol for pain. Patient is anemic, labs this morning showed hgb 6.7 down from 9.0 on admission. Patient denies symptoms, vitals stable. will reassess when patient begins ambulating. Start Iron supplement, type and screen drawn on admission. Pending clinical course, patient may discharge at 48 hours post . Social work consulted for with no care, THC positive on UDS. <Ray Pitts - Last Filed: 03/23/21 10:32> - Patient Data Vital Signs - Most Recent: Last Vital Signs Temp 98.4 F 03/22/21 19:21 Pulse 70 03/22/21 19:21 Resp 18 03/22/21 19: BP 112/61 03/22/21 19: Pulse Ox 99 03/22/21 19:21 I&O - Last 24 Hours: Intake & Output 03/22/21 03/23/21 03/23/21 22:59 06:59 14:59 Intake Total 360 Balance 360 Lab Results - Last 24 Hours: Laboratory Results - last 24 hr 03/21/21 03/21/21 03/23/21 Range/Units 13:45 13:45 05:45 Hgb 6.7 L* (12.0-16.0) g/dL Hct 23.7 L (37.0-47.0) % Hep Bs Antigen Negative (Negative) Hepatitis C Antibody >11.0 H (0.0-0.9) s/co ratio Micro Results - Last 24 Hours: Microbiology 03/21/21 15:10 Group B Streptococcus Culture - Preliminary Vaginal/Rectal NEGATIVE STREP GROUP B Med Orders - Current: Current Medications Acetaminophen (Acetaminophen 325 Mg Tab) 650 mg PO Q6H PRN PRN Reason: Pain/Fever Last Admin: 03/22/21 11:08 Dose: 650 mg Documented by: Benzocaine/Menthol (Benzocaine/Menthol 20%-0.5% [place] 78 Gm Cannister) 0 gm TOP Q4H PRN PRN Reason: Perineal comfort measures Last Admin: 03/21/21 22:32 Dose: 1 applic Documented by: Carboprost Tromethamine (Carboprost Tromethamine 250 Mcg/1 Ml Amp) 250 mcg IM ASDIRECTED PRN PRN Reason: Excessive vaginal bleeding Docusate Sodium (Docusate Sodium 100 Mg Cap) 100 mg PO BID PRN PRN Reason: Constipation Last Admin: 03/23/21 09:24 Dose: 100 mg Documented by: Ferrous Sulfate (Ferrous Sulfate 325 Mg Tab) 325 mg PO Q48H MARK Ibuprofen (Ibuprofen 800 Mg Tab) 800 mg PO Q8H PRN PRN Reason: Cramping Methylergonovine Maleate (Methylergonovine 0.2 Mg/1 Ml Amp) 0.2 mg IM ASDIRECTED PRN PRN Reason: Hemorrhage Misoprostol (Misoprostol 400 Mcg (4 X 100 Mcg Tab)) 800 mcg RECTAL ONETIME PRN PRN Reason: Hemorrhage Oxytocin (Oxytocin 10 Units/1 Ml Sdv) 10 unit IM ONETIME PRN PRN Reason: Bleeding Prenat Multivit/Milieu Counselor/Iron/Folic Ac ( Multivitamin With Calcium/Folic Acid/Iron Tab) 1 each PO DAILY [facility] Last Admin: 03/23/21 09:24 Dose: 1 each Documented by: Simethicone (Simethicone 80 Mg Tab.Chew) 80 mg PO Q4H PRN PRN Reason: Gas Discontinued Medications Acetaminophen (Acetaminophen 325 Mg Tab) 650 mg PO Q4H PRN PRN Reason: Pain (Mild 1-3) and fever Carboprost Tromethamine (Carboprost Tromethamine 250 Mcg/1 Ml Amp) 250 mcg IM ASDIRECTED PRN PRN Reason: HEMORRHAGE Lactated Ringer's (Ringers, Lactated) 1,000 mls @ 999 mls/hr IV BOLUS ONE Stop: 03/21/21 14:58 Last Admin: 03/21/21 19:09 Dose: Not Given Documented by: Lactated Ringer's (Ringers, Lactated) 1,000 mls @ 125 mls/hr IV ASDIRECTED MARK Last Admin: 03/21/21 13:50 Dose: 125 mls/hr Documented by: Tranexamic Acid 1,000 mg/ (Sodium Chloride) 110 mls @ 660 mls/hr IV ONETIME PRN PRN Reason: Bleeding Oxytocin/Sodium Chloride (Pitocin In Ns 30 Unit/500 Ml) 30 unit in 500 mls @ 2 mls/hr IV TITRATE [facility]; Protocol Last Titration: 03/21/21 18:46 Dose: 250 munits/min, 250 mls/hr Documented by: Penicillin G Potassium 5 (millunits/ Sodium Chloride) 100 mls @ 200 mls/hr IV ONETIME ONE Stop: 03/21/21 15:59 Last Admin: 03/21/21 15:30 Dose: 200 mls/hr Documented by: Penicillin G Potassium 2.5 (millunits/ Sodium Chloride) 100 mls @ 200 mls/hr IV Q4H MARK Last Admin: 03/21/21 22:59 Dose: Not Given Documented by: Tranexamic Acid 1,000 mg/ (Sodium Chloride) 110 mls @ 660 mls/hr IV ONETIME PRN PRN Reason: Bleeding Lidocaine HCl (Lidocaine 1% 30 Ml Sdv) 30 ml INJECT ASDIRECTED PRN PRN Reason: Perineal Repair Measles/Mumps/Rubella Vaccine Live (Measles, Mumps & Rubella Vaccine 0.5 Ml Sdv) 0.5 ml SUBCUT .ONCE ONE Stop: 03/21/21 18:48 Last Admin: 03/21/21 22:33 Dose: 0.5 ml Documented by: Misoprostol (Misoprostol 400 Mcg (4 X 100 Mcg Tab)) 800 mcg RECTAL ASDIRECTED PRN PRN Reason: Hemorrhage Ondansetron HCl (Ondansetron 4 Mg/2 Ml Sdv) 4 mg IVPUSH Q4H PRN PRN Reason: Nausea/Vomiting Sodium Chloride (Sodium Chloride 0.9% 10 Ml Syringe) 10 ml FLUSH ASDIRECTED PRN PRN Reason: Keep Vein Open Sodium Chloride (Sodium Chloride 0.9% 10 Ml Syringe) 10 ml FLUSH ASDIRECTED PRN PRN Reason: Keep Vein Open Zolpidem Tartrate (Zolpidem 5 Mg Tab) 5 mg PO BEDTIME PRN PRN Reason: Insomnia - Plan Plan:: I supervised the resident, and agree with the documentation as provided. - Ray Pitts MD
[2021-03-23] MEDS ORDERED: Ferrous Sulfate 325 MG Tab PO SCH (11:30)
[2021-03-23 14:55] VITALS: BP 114/68; PULSE 65
[2021-03-25 13:47] LABS: C.TRACHOMATIS BY TMA Positive (Negative); N.GONORRHOEAE BY TMA Negative (Negative)
== END 2021-03-23 13:06 | disposition home or self-care (01) | DRG 806 ==
LOC: DL.OBCHECK 12:43 → DL.OB 15:14 → OBSVTOIN 18:27
PROVIDERS: ADMIT Student in an Organized Health Care Education/Training Program; ATTEND Student in an Organized Health Care Education/Training Program
PROC: 10E0XZZ Delivery of Products of Conception, External Approach (ICD-10-PCS; principal; 2021-03-21)
PROC: 0HQ9XZZ Repair Perineum Skin, External Approach (ICD-10-PCS; 2021-03-21)
PROC: 3E0234Z Introduction of Serum, Toxoid and Vaccine into Muscle, Percutaneous Approach (ICD-10-PCS; 2021-03-21)
DX: O99.02 Anemia complicating childbirth (principal); O99.324 Drug use complicating childbirth; Z37.0 Single live birth; O70.0 First degree perineal laceration during delivery; D64.9 Anemia, unspecified; F12.90 Cannabis use, unspecified, uncomplicated; R76.8 Other specified abnormal immunological findings in serum; Z20.822 Contact with and (suspected) exposure to COVID-19; Z23 Encounter for immunization; Z3A.37 37 weeks gestation of pregnancy
CPT/HCPCS: 36415; 59409; 76815; 80305-QW; 80307; 81001; 85014; 85018; 85027; 86762; 86803; 86850; 86900; 86901; 87081; 87210; 87340; 87389; 87491; 87522; 87591; 90471; 90707; A9270-GY; J2540; J2590; J7120; U0002

== ENCOUNTER 2024-06-12 20:05 | Inpatient (IN) | payer MEDICAID ==
[2024-06-12 20:54] LABS: ALANINE AMINOTRANSFERASE,ALT 12 U/L (14-59); ASPARTATE AMNIOTRANSFERASE,AST 13 U/L (15-37); BLOOD UREA NITROGEN,BUN 13 mg/dL (7-18); LACTATE DEHYDROGENASE,LDH 180 U/L (81-234); URIC ACID 3.6 mg/dL (2.6-6.0)
[2024-06-12 21:05] LABS: ESTIMATED GFR 121 mL/min (>=60)
[2024-06-12 21:10] LABS: HEMATOCRIT 32.3 % (37.0-47.0); HEMOGLOBIN 9.3 g/dL (12.0-16.0); MEAN CORPUSCULAR HEMOGLOBIN 20.3 pg (27.0-34.0); MEAN CORPUSCULAR HGB CONC 28.8 g/dL (33.0-35.0); MEAN CORPUSCULAR VOLUME 70.4 fL (80-100); RED BLOOD CELL COUNT 4.59 10^6/uL (4.2-5.4); WHITE BLOOD CELL COUNT,WBC 10.7 10^3/uL (5.0-10.0)
[2024-06-12 22:02] LABS: APPEARANCE,URINE SLIGHTLY CLOUDY (CLEAR); BILIRUBIN,URINE NEGATIVE (NEGATIVE); COLOR,URINE YELLOW (YELLOW); GLUCOSE,URINE NEGATIVE (NEGATIVE); KETONES,URINE NEGATIVE (NEGATIVE); LEUKOCYTE ESTERASE,URINE MODERATE (NEGATIVE); NITRITE,URINE NEGATIVE (NEGATIVE); OCCULT BLOOD,URINE NEGATIVE (NEGATIVE); PROTEIN,URINE TRACE (NEGATIVE); UROBILINOGEN,URINE 0.2 mg/dL (0.2-1.0)
[2024-06-12 22:04] LABS: AMPHETAMINES,URINE NEGATIVE (NEGATIVE); BARBITURATES,URINE NEGATIVE (NEGATIVE); BENZODIAZEPINE,URINE NEGATIVE (NEGATIVE); MDMA (ECSTASY), URINE NEGATIVE (NEGATIVE); METHADONE,URINE NEGATIVE (NEGATIVE); METHAMPHETAMINES,URINE NEGATIVE (NEGATIVE); OPIATES,URINE NEGATIVE (NEGATIVE); OXYCODONE,URINE NEGATIVE (NEGATIVE); PHENCYCLIDINE,URINE NEGATIVE (NEGATIVE); TCA,URINE NEGATIVE (NEGATIVE)
[2024-06-12] MEDS ORDERED: Sodium Chloride 0.9% 10 ML Syringe FLUSH PRN (22:12)
[2024-06-12] MEDS ORDERED: Ondansetron 4 MG/2 ML SDV IVPUSH PRN (22:12)
[2024-06-12 22:19] LABS: CREATININE,URINE RAND 83.99 mg/dL (No establ ref range); PROTEIN CREATININE RATIO,URINE 383.4 mg/g (<150.0); PROTEIN,URINE RANDOM 32.2 mg/dL (0.0-11.9)
[2024-06-12 22:22] LABS: AMORPHOUS SEDIMENT,URINE MODERATE /HPF (NOT SEEN); BACTERIA,URINE MODERATE /HPF (0-FEW/HPF); EPITHELIAL CELLS,URINE MODERATE /HPF (NOT SEEN); MUCUS,URINE MODERATE /LPF (NOT SEEN); RBC,URINE 0-5 /HPF (0-5); WBC,URINE 30-40 /HPF (0-5/HPF)
[2024-06-12] MEDS: Lactated Ringers 1,000 ML IV SCH (23:41)
[2024-06-12] MEDS: Oxytocin/Normal Saline 30 UNIT/500 ML BAG IV SCH (23:41)
[2024-06-12] MEDS: Misoprostol 100 MCG Tab RECTAL PRN (23:44)
[2024-06-12] MEDS: Methylergonovine 0.2 MG/1 ML Amp IM PRN (23:48)
[2024-06-12] MEDS: Carboprost Tromethamine 250 MCG/1 ML Amp IM PRN (23:59)
[2024-06-13] MEDS ORDERED: Measles, Mumps & Rubella Vaccine 0.5 ML SDV SUBCUT ONE (00:01)
[2024-06-13] MEDS ORDERED: Simethicone 80 MG Tab.Chew PO PRN (00:01)
[2024-06-13] MEDS ORDERED: Sodium Chloride 0.9% 10 ML Syringe FLUSH PRN (00:01)
[2024-06-13] MEDS ORDERED: Diphtheria,Pertussis(Acell),Tetanus Vaccine 0.5 ML Syringe IM ONE (00:01)
[2024-06-13] MEDS ORDERED: Oxytocin 10 Units/1 ML SDV IM PRN (00:01)
[2024-06-13] MEDS: Tranexamic Acid 1,000 MG in Sodium Chloride 0.9% 100 ML IV PRN (00:09)
[2024-06-13] MEDS ORDERED: Witch Hazel Medicated Pads 100/Jar TOP PRN (01:33)
[2024-06-13] MEDS: Ibuprofen 800 MG Tab PO SCH (01:38)
[2024-06-13] MEDS: Benzocaine/Menthol 20%-0.5% Spray 78 GM Cannister TOP PRN (01:39)
[2024-06-13] MEDS: Lactated Ringers 1,000 ML IV ONE (05:49)
[2024-06-13] MEDS: Lidocaine 1% 30 ML SDV INJECT ONE (05:49)
[2024-06-13 06:28] LABS: HEMATOCRIT 29.6 % (37.0-47.0); HEMOGLOBIN 8.8 g/dL (12.0-16.0); MEAN CORPUSCULAR HEMOGLOBIN 20.7 pg (27.0-34.0); MEAN CORPUSCULAR HGB CONC 29.7 g/dL (33.0-35.0); MEAN CORPUSCULAR VOLUME 69.5 fL (80-100); RED BLOOD CELL COUNT 4.26 10^6/uL (4.2-5.4); WHITE BLOOD CELL COUNT,WBC 21.7 10^3/uL (5.0-10.0)
[2024-06-13] MEDS: Prenatal Multivitamin with Calcium/Folic Acid/Iron Tab PO SCH (08:33)
[2024-06-13] MEDS: Ferrous Sulfate 325 MG Tab PO SCH (08:33)
[2024-06-14] MEDS: Acetaminophen 325 MG Tab PO PRN (19:14)
[2024-06-15] MEDS: Docusate Sodium 100 MG Cap PO PRN (12:48)
[2024-06-15 13:26] VITALS: BP 118/64; PULSE 86
[2024-06-15 14:46] LABS: C.TRACHOMATIS BY TMA Negative (Negative); N.GONORRHOEAE BY TMA Negative (Negative); SOURCE GENITAL
[2024-06-16 10:46] LABS: HEP B SURFACE AG Negative (Negative)
[2024-06-16 14:41] LABS: HCV AB BY CIA INTERP Low Pos (Negative); HEPC AB BY CIA INDEX 3.67 IV
[2024-06-17 16:41] LABS: HCV QNT BY NAAT (IU/ML) Not Detected; HCV QNT BY NAAT (LOG IU/ML) Not Detected log IU/mL; HCV QNT BY NAAT INTERP Not Detected (Not Detected)
== END 2024-06-15 16:00 | disposition home or self-care (01) | DRG 806 ==
LOC: DL.OBCHECK 20:05 → DL.OB 21:11 → OBSVTOIN 23:36 → DL.OB 23:36
PROVIDERS: ADMIT Family Medicine; ATTEND Family Medicine
PROC: 10E0XZZ Delivery of Products of Conception, External Approach (ICD-10-PCS; principal; 2024-06-13)
PROC: 3E0DXGC Introduction of Other Therapeutic Substance into Mouth and Pharynx, External Approach (ICD-10-PCS; 2024-06-13)
PROC: 10907ZC Drainage of Amniotic Fluid, Therapeutic from Products of Conception, Via Natural or Artificial Opening (ICD-10-PCS; 2024-06-13)
DX: O42.02 Full-term premature rupture of membranes, onset of labor within 24 hours of rupture (principal); O99.324 Drug use complicating childbirth; Z37.0 Single live birth; O99.02 Anemia complicating childbirth; O62.2 Other uterine inertia; O69.1XX0 Labor and delivery complicated by cord around neck, with compression, not applicable or unspecified; F12.90 Cannabis use, unspecified, uncomplicated; Z3A.39 39 weeks gestation of pregnancy
CPT/HCPCS: 36415; 59409; 76815; 80305-QW; 81001; 82565; 82570; 83615; 84112; 84156; 84450; 84460; 84520; 84550; 85027; 86592; 86762; 86803; 86850; 86900; 86901; 87081; 87086; 87210; 87340; 87389; 87491; 87522; 87591; A9270-GY; J2210; J2590; J3490; J7120

== ENCOUNTER 2024-06-17 19:27 | Emergency (ER) | payer MEDICAID ==
[2024-06-17 20:27] LABS: HEMOGLOBIN 10.5 g/dL (12.0-16.0); MEAN CORPUSCULAR HEMOGLOBIN 20.7 pg (27.0-34.0); MEAN CORPUSCULAR HGB CONC 29.2 g/dL (33.0-35.0); PLATELET COUNT,PLT 305 10^3/uL (150-450); RED BLOOD CELL COUNT 5.07 10^6/uL (4.2-5.4); WHITE BLOOD CELL COUNT,WBC 14.1 10^3/uL (5.0-10.0)
[2024-06-17] MEDS: Naloxone 2 MG/2 ML Syringe IVPUSH ONE (20:30)
[2024-06-17 20:35] LABS: BASOPHILS PERCENT AUTO 0.1 % (0.0-1.0); EOSINOPHILS PERCENT AUTO 0.4 % (1.0-3.0); LYMPHOCYTES PERCENT AUTO 11.1 % (20.5-50.1); MONOCYTES PERCENT AUTO 3.1 % (2-8); NEUTROPHILS PERCENT AUTO 85.3 % (42.2-75.2)
[2024-06-17 20:49] LABS: AMPHETAMINES,URINE NEGATIVE (NEGATIVE); BARBITURATES,URINE NEGATIVE (NEGATIVE); BENZODIAZEPINE,URINE NEGATIVE (NEGATIVE); MDMA (ECSTASY), URINE NEGATIVE (NEGATIVE); METHADONE,URINE NEGATIVE (NEGATIVE); METHAMPHETAMINES,URINE NEGATIVE (NEGATIVE); OPIATES,URINE NEGATIVE (NEGATIVE); OXYCODONE,URINE NEGATIVE (NEGATIVE); PHENCYCLIDINE,URINE NEGATIVE (NEGATIVE); TCA,URINE NEGATIVE (NEGATIVE)
[2024-06-17 20:50] LABS: ALANINE AMINOTRANSFERASE,ALT 31 U/L (14-59); ALBUMIN 2.8 g/dL (3.4-5.0); ALKALINE PHOSPHATASE 181 U/L (46-116); ANION GAP 18.9 mEq/L (7-13); ASPARTATE AMNIOTRANSFERASE,AST 28 U/L (15-37); BILIRUBIN TOTAL 0.3 mg/dL (0.2-1.0); BLOOD UREA NITROGEN,BUN 6 mg/dL (7-18); BUN/CREATININE RATIO 13.3 (No establ ref range); CALCIUM 8.6 mg/dL (8.5-10.1); CARBON DIOXIDE,CO2 23 mmol/L (21-32); CHLORIDE,CL 105 mmol/L (98-107); CREATININE 0.45 mg/dL (0.55-1.02); ETHANOL BLOOD MEDICAL 290 mg/dL (0); GLUCOSE RANDOM 126 mg/dL (70-99); POTASSIUM,K 3.9 mmol/L (3.5-5.1); PROTEIN TOTAL,TP 8.3 g/dL (6.4-8.2); SODIUM,NA 143 mmol/L (136-145)
[2024-06-17 20:51] LABS: A/G RATIO 0.51; ESTIMATED GFR 135 mL/min (>=60)
[2024-06-17 20:53] LABS: APPEARANCE,URINE CLOUDY (CLEAR); BILIRUBIN,URINE NEGATIVE (NEGATIVE); COLOR,URINE YELLOW (YELLOW); GLUCOSE,URINE NEGATIVE (NEGATIVE); KETONES,URINE NEGATIVE (NEGATIVE); LEUKOCYTE ESTERASE,URINE MODERATE (NEGATIVE); NITRITE,URINE NEGATIVE (NEGATIVE); OCCULT BLOOD,URINE LARGE (NEGATIVE); PROTEIN,URINE NEGATIVE (NEGATIVE); UROBILINOGEN,URINE 0.2 mg/dL (0.2-1.0)
[2024-06-17 21:06] LABS: AMORPHOUS SEDIMENT,URINE FEW /HPF (NOT SEEN); BACTERIA,URINE FEW /HPF (0-FEW/HPF); EPITHELIAL CELLS,URINE FEW /HPF (NOT SEEN); MUCUS,URINE FEW /LPF (NOT SEEN); RBC,URINE 0-5 /HPF (0-5); WBC,URINE 30-40 /HPF (0-5/HPF)
[2024-06-17 21:14] LABS: LYMPHOCYTES PERCENT MAN 10 % (20-50); MONOCYTES PERCENT MAN 3 % (2-8); SEG NEUTROPHILS PERCENT MAN 87 % (42-75)
[2024-06-17] MEDS: Naloxone 2 MG/2 ML Syringe ONE (21:19)
[2024-06-17] MEDS: Take Home: Ciprofloxacin HCl 500 MG, 6 Tab Pack PO ONE (21:29)
[2024-06-17 21:36] VITALS: BP 124/82; PULSE 112
== END 2024-06-17 21:30 | disposition home or self-care (01) ==
LOC: DL.ED 19:27
DX: F10.120 Alcohol abuse with intoxication, uncomplicated (principal); N30.00 Acute cystitis without hematuria; Y90.8 Blood alcohol level of 240 mg/100 ml or more
CPT/HCPCS: 36415; 80053; 80305; 80307; 81001; 85025; 87086; 96374; 99284; 99285; A9270; J2310